=== PATIENT | male | born 1965 | race African-American/Black ===

== ENCOUNTER 2016-12-13 14:48 | Emergency (ER) | payer BC ==
[~2016-12-13] VITALS: Ht 172.7 cm; Wt 98.4 kg
[~2016-12-13 14:48] MED LIST: CINA30TA PO; HYDR-4075 PO; INSU100V7 SQ; METO25TA50 PO; PANT40TA2 PO; SEVE800T8 PO; SIMV5TAB6 PO
--- NOTE | 2016-12-13 15:05 | NUR ---
DR MAIER AT THE BEDSIDE FOR EVAL AND EXAM.
[2016-12-13] MEDS ORDERED: PRED10TA PO (15:12)
[2016-12-13] MEDS ORDERED: DILT180T11 PO (15:12)
[2016-12-13] MEDS ORDERED: TACR1CAP7 PO (15:12)
[2016-12-13] MEDS ORDERED: SIMV10TA6 PO (15:12)
[2016-12-13] MEDS ORDERED: MYCO180T3 PO (15:12)
[2016-12-13] MEDS ORDERED: TACR1CAP PO ×2 (15:16)
[2016-12-13] MEDS: IV NORMAL SALINE 500 ML BAG IV ONE (15:24)
[2016-12-13 15:36] LABS: BASOPHILS % (AUTO) 0.3 % (0.0-2.0); EOSINOPHILS # (AUTO) 0.1 K/uL (0.0-0.7); EOSINOPHILS % (AUTO) 0.7 % (0.0-7.0); HEMATOCRIT 46.1 % (40.0-50.0); MEAN CORPUSCULAR HEMOGLOBIN 28.7 uug (27.0-31.0); MEAN CORPUSCULAR HGB CONC 33 g/dL (32.0-37.0); MEAN CORPUSCULAR VOLUME 88.4 fL (82.0-92.0); MONOCYTES # (AUTO) 0.6 K/uL (0.1-1.30); MONOCYTES % (AUTO) 6.7 % (0.0-11.0); NEUTROPHILS # (AUTO) 6.9 K/uL (1.8-8.9); NEUTROPHILS % (AUTO) 80.3 % (38.5-71.5); PLATELET COUNT (AUTO) 187 K/uL (150-450); RED BLOOD CELL COUNT(AUTO) 5.22 MIL/uL (4.70-6.10); RED CELL DISTRIBUTION WIDTH 13.8 % (11.5-14.5); WHITE BLOOD COUNT (AUTO) 8.6 K/uL (4.0-11.2)
[2016-12-13] MEDS ORDERED: CEFTRIAXONE 1 G VIAL ONE (15:39)
[2016-12-13] MEDS: CEFTRIAXONE 1 G in IV DEXTROSE 5% 50 ML IV ONE (16:00)
[2016-12-13 16:05] LABS: LACTIC ACID 0.9 mmol/L (0.4-2.0)
[2016-12-13 16:13] LABS: CALCIUM 9.4 mg/dL (8.5-10.1); POTASSIUM 4.3 mmol/L (3.5-5.1)
[2016-12-13 16:14] LABS: CREATININE 2.1 mg/dL (0.6-1.3)
[2016-12-13 16:20] LABS: BILIRUBIN,DIRECT 0.1 mg/dL (0.0-0.2); BILIRUBIN,TOTAL 0.4 mg/dL (0.2-1.0); TOTAL PROTEIN, SERUM 7.5 g/dL (6.4-8.2)
[2016-12-13 16:21] LABS: TROPONIN I 0.017 ng/mL (0.00-0.056)
[2016-12-13] MEDS: ACYCLOVIR IV 500 MG in IV DEXTROSE 5% 100 ML IV ONE (16:26)
--- NOTE | 2016-12-13 16:35 | NUR ---
called [facility] , paged dr orozco who is covering for dr serrano, about pt.
--- NOTE | 2016-12-13 16:56 | NUR ---
PT'S FACE SHEET FAXED TO [facility], PER REQUEST.
[2016-12-13] MEDS: VANCOMYCIN IV 1,000 MG in IV DEXTROSE 5% 250 ML IV ONE (17:14)
--- NOTE | 2016-12-13 17:14 | NUR ---
pt resting in bed w/ eyes closed, pt request not to have bp cuff on,"it wakes me up". continue on pulse ox and heart monitor.
[2016-12-13 17:43] LABS: *BILIRUBIN,URIN NEGATIVE (NEGATIVE); *BLOOD, URINE 1+ (NEGATIVE); *CLARITY,URINE CLEAR (CLEAR); *COLOR,URINE YELLOW (YELLOW); *KETONES,URINE NEGATIVE (NEGATIVE); *PROTEIN,URINE NEGATIVE (NEGATIVE); *UROBILINOGEN,URINE 0.2 E.U./dl (NORMAL); LEUKOCYTE ESTERASE ,URINE NEGATIVE (NEGATIVE); NITRITE, URINE NEGATIVE (NEGATIVE); PH,URINE 6.5 (5.0-8.0); UGLUCOSE NEGATIVE (NEGATIVE)
--- NOTE | 2016-12-13 17:45 | NUR ---
pt signed paper for transfer, Dr Mcneill accepted pt to be transfered to [facility], pending bed availibity. Report given to Sindi (rep of tx center at [facility]). pt's aware of transfer.
[2016-12-13 17:51] LABS: WBC,URINE 0-3 /HPF (0-3)
--- NOTE | 2016-12-13 18:45 | NUR ---
[facility] HAD BED AVAIL FOR PT. EMR CALLED, ETA 1 TO HOUR AND HALF.
--- NOTE | 2016-12-13 20:35 | NUR ---
Patient Tranfers to outside Facility Physician: Dr. Mcneill Location: [facility] Room 6318
== END 2016-12-13 20:38 | disposition short-term general hospital (02) ==
LOC: ER 14:55
DX: R51 Headache (principal); I10 Essential (primary) hypertension; E11.9 Type 2 diabetes mellitus without complications; K21.9 Gastro-esophageal reflux disease without esophagitis; Z94.0 Kidney transplant status; Z79.4 Long term (current) use of insulin
CPT/HCPCS: 36415; 70450; 71010; 80048; 80076; 81001; 83605; 84484; 85025; 85730; 86850; 86900; 86901; 87040 ×2; 87086; 93005; 96361; 96365; 96366; 96368; 96375; 99285; A4663; J0696; J3490; J7040; 70030-TC

== ENCOUNTER 2017-12-29 06:30 | Emergency (ER) | payer BC ==
[~2017-12-29] VITALS: Ht 172.7 cm; Wt 95.3 kg
[~2017-12-29 06:30] MED LIST changes: -CINA30TA PO; +DILT180T11 PO; -HYDR-4075 PO; +MYCO180T3 PO; +PRED10TA PO; -SEVE800T8 PO; +SIMV10TA6 PO; -SIMV5TAB6 PO; +TACR1CAP PO
--- NOTE | 2017-12-29 07:02 | NUR ---
Dr Solis into eval patient
[2017-12-29 08:05] LABS: CARBON DIOXIDE 25 mmol/L (21-32); CHLORIDE 101 mmol/L (98-107); CREATININE 1.9 mg/dL (0.6-1.3); GLUCOSE 126 mg/dL (74-106); POTASSIUM 3.6 mmol/L (3.5-5.1); UREA NITROGEN, BLOOD 20 mg/dL (7-18)
--- NOTE | 2017-12-29 08:10 | NUR ---
Patient is resting comfortably on gurney with eyes closed, pending results and disposition.
[2017-12-29 08:20] LABS: ALANINE AMINOTRANSFERASE 25 U/L (16-63); ALKALINE PHOSPHATASE 43 U/L (50-136); ASPARTATE AMINOTRANSFERASE 23 U/L (15-37); BILIRUBIN,TOTAL 0.3 mg/dL (0.2-1.0); TOTAL PROTEIN, SERUM 7.4 g/dL (6.4-8.2)
[2017-12-29 08:32] LABS: BILIRUBIN,DIRECT < 0.1 mg/dL (0.0-0.2)
--- NOTE | 2017-12-29 08:40 | NUR ---
0829- The lab assistant professor of surgery came back to redraw some blood specimen (e.g. CBC, lactic acid) but patient refused any blood redraw, notified.
--- NOTE | 2017-12-29 08:53 | NUR ---
Patient discharged to home in stable conditon. Written and verbal after care instructions given to patient with prescription for NORCO. Patient verbalizes understanding of instructions. Patient left ER with steady gait.
== END 2017-12-29 08:55 | disposition home or self-care (01) ==
LOC: ER 06:33
DX: R07.89 Other chest pain (principal); J40 Bronchitis, not specified as acute or chronic; I10 Essential (primary) hypertension; E11.9 Type 2 diabetes mellitus without complications; E78.5 Hyperlipidemia, unspecified; K21.9 Gastro-esophageal reflux disease without esophagitis; Z94.0 Kidney transplant status; Z91.048 Other nonmedicinal substance allergy status; Z79.4 Long term (current) use of insulin; Z79.899 Other long term (current) drug therapy
CPT/HCPCS: 36415; 70030-TC; 71045; 83605; 85025; 85730; 87040; 93005; A4663

== ENCOUNTER 2018-10-10 05:53 | Emergency (ER) | payer BC ==
[~2018-10-10] VITALS: Ht 172.7 cm; Wt 99.8 kg
--- NOTE | 2018-10-10 06:40 | NUR ---
Pt. ambulated into ED w/ request for blood draw, concerned about reaquiring conjunctivitis, pt. was treated w/ abx eye drops for conjunctivitis x1 week ago, reports some blurred vision and watery eyes in R eye, denies GUEVARA/F/C/N/V
[2018-10-10 07:04] LABS: BASOPHILS % (AUTO) 0.7 % (0.0-2.0); EOSINOPHILS # (AUTO) 0.1 K/uL (0.0-0.7); EOSINOPHILS % (AUTO) 1.4 % (0.0-7.0); HEMATOCRIT 44.1 % (36.7-47.1); HEMOGLOBIN 15.1 g/dL (12.5-16.3); LYMPHOCYTES % (AUTO) 15.5 % (20.5-51.5); MEAN CORPUSCULAR HEMOGLOBIN 31.2 uug (23.8-33.4); MEAN CORPUSCULAR HGB CONC 34 g/dL (32.5-36.3); MEAN CORPUSCULAR VOLUME 91.1 fL (73.0-96.2); MONOCYTES # (AUTO) 0.5 K/uL (2.0-10.0); MONOCYTES % (AUTO) 7.9 % (0.0-11.0); NEUTROPHILS # (AUTO) 4.9 K/uL (1.8-8.9); NEUTROPHILS % (AUTO) 74.5 % (38.5-71.5); PLATELET COUNT (AUTO) 209 K/uL (152-348); RED BLOOD CELL COUNT(AUTO) 4.84 MIL/uL (4.06-5.63); WHITE BLOOD COUNT (AUTO) 6.6 K/uL (3.6-10.2)
--- NOTE | 2018-10-10 07:04 | NUR ---
Gave report to betty EMANUEL
[2018-10-10 07:09] LABS: CREATININE 1.7 mg/dL (0.6-1.3); POTASSIUM 3.5 mmol/L (3.5-5.1)
--- NOTE | 2018-10-10 08:06 | NUR ---
Patient discharged to home in stable conditon. Written and verbal after care instructions given. Patient verbalizes understanding of instructions.
== END 2018-10-10 08:06 | disposition home or self-care (01) ==
LOC: ER 05:54
DX: H10.9 Unspecified conjunctivitis (principal); I10 Essential (primary) hypertension; K21.9 Gastro-esophageal reflux disease without esophagitis; E11.9 Type 2 diabetes mellitus without complications; F17.200 Nicotine dependence, unspecified, uncomplicated; Z79.4 Long term (current) use of insulin; Z79.899 Other long term (current) drug therapy; Z91.048 Other nonmedicinal substance allergy status
CPT/HCPCS: 36415; 85025; 87070; A4663

== ENCOUNTER 2021-09-26 07:38 | Inpatient (IN) | payer BC ==
[~2021-09-26] VITALS: Ht 172.7 cm; Wt 90.7 kg
[~2021-09-26 07:38] MED LIST changes: -SIMV10TA6 PO; +SIMV10TA98 PO; -TACR1CAP PO; +TACR1CAP2 PO
[2021-09-26 08:40] LABS: HEMATOCRIT 41.9 % (36.7-47.1); MEAN CORPUSCULAR HEMOGLOBIN 30.3 uug (23.8-33.4); MEAN CORPUSCULAR VOLUME 89.4 fL (73.0-96.2); PLATELET COUNT (AUTO) 200 K/uL (152-348)
[2021-09-26] MEDS ORDERED: FLUO20CA36 PO (08:47)
[2021-09-26] MEDS ORDERED: AMLO10TA59 PO (08:47)
[2021-09-26] MEDS ORDERED: CLOP75TA15 PO (08:47)
[2021-09-26] MEDS ORDERED: ROSU20TA2 PO (08:47)
[2021-09-26] MEDS ORDERED: LEVE500T20 PO (08:47)
[2021-09-26] MEDS ORDERED: INSU300I SQ (08:47)
[2021-09-26] MEDS ORDERED: ASPI81TA31 PO (08:47)
[2021-09-26] MEDS ORDERED: [UNRECOGNIZED DRUG - REMARK] SQ (08:47)
--- NOTE | 2021-09-26 08:47 | NUR ---
MEDICATIONS RECONCILED W/ PT'S BY PHONE [phone].
[2021-09-26 08:53] LABS: POTASSIUM 3.6 mmol/L (3.5-5.1)
--- NOTE | 2021-09-26 08:59 | NUR ---
Pt resting with NAD noted at this time. Pt to be admitted to tele per . EPIC paged, called tele floor for bed assignment.
[2021-09-26 09:00] LABS: BILIRUBIN,DIRECT 0.2 mg/dL (0.0-0.2); BILIRUBIN,TOTAL 0.6 mg/dL (0.2-1.0); TOTAL PROTEIN, SERUM 7.3 g/dL (6.4-8.2)
[2021-09-26] MEDS ORDERED: DEXAMETHASONE SOD PHOSPHATE 4 MG INJ IV ONE (09:00)
[2021-09-26] MEDS ORDERED: DEXAMETHASONE SOD PHOSPHATE 10 MG INJ ONE (09:03)
--- NOTE | 2021-09-26 09:05 | NUR ---
Plan of care discussed with pt, pt verbalized understanding. NAD noted at this time.
--- NOTE | 2021-09-26 09:35 | NUR ---
spoke with via telephone and pt has been accepted for tele admission. Called again for tele bed assignment, tele floor to call back.
--- NOTE | 2021-09-26 11:00 | NUR ---
Spoke with nursing pressure control supervisor who stated no tele beds available at this time. Pt resting in rbroad top with NAD noted.
--- NOTE | 2021-09-26 12:25 | NUR ---
Pt resting with NAD noted, pending tele admission when bed available.
--- NOTE | 2021-09-26 13:30 | NUR ---
Pt sitting in gurney and eating lunch, NAD noted.
--- NOTE | 2021-09-26 14:10 | NUR ---
SBAR report given to JENAE Daniels on tele floor.
--- NOTE | 2021-09-26 15:00 | NUR ---
Pt trans to tele room 318.
[2021-09-26] MEDS ORDERED: AZITHROMYCIN 250 MG TABLET PO ONE (16:30)
[2021-09-26 16:38] VITALS: BP 127/60
[2021-09-26] MEDS ORDERED: MYCOPHENOLATE SODIUM 180 MG PO SCH (17:00)
[2021-09-26] MEDS ORDERED: TEMAZEPAM 15 MG CAPSULE PO PRN (17:15)
[2021-09-26] MEDS ORDERED: ONDANSETRON 4 MG/2 ML VIAL IV PRN (17:15)
[2021-09-26] MEDS ORDERED: MORPHINE SULFATE 2 MG/1 ML DISP.SYRIN IV PRN (17:15)
[2021-09-26] MEDS ORDERED: INSULIN REGULAR, HUMAN 300 UNIT/3 ML VIAL SQ PRN (17:15)
[2021-09-26] MEDS ORDERED: DEXTROSE 50% 50 ML DISP.SYRIN IV PRN (17:15)
[2021-09-26] MEDS ORDERED: ACETAMINOPHEN 325 MG TABLET PO PRN (17:15)
[2021-09-26] MEDS ORDERED: ALBUTEROL SULFATE 2.5 MG/3 ML NEBU NEB PRN (17:15)
[2021-09-26] MEDS ORDERED: TACROLIMUS ANHYDROUS 1 MG CAPSULE PO SCH (18:00)
[2021-09-26] MEDS: levETIRAcetam 500 MG TABLET PO SCH (18:14)
[2021-09-26] MEDS: FLUOXETINE HCL 20 MG CAPSULE PO SCH (18:14)
[2021-09-26] MEDS: CEFTRIAXONE 1 G in IV DEXTROSE 5% 50 ML IV SCH (18:15)
[2021-09-26 20:33] VITALS: BP 131/67
[2021-09-26] MEDS: SIMVASTATIN 10 MG TABLET PO SCH (20:53)
[2021-09-26] MEDS: LOPERAMIDE HCL 2 MG CAPSULE PO PRN (20:53)
[2021-09-26] MEDS: TACROLIMUS ANHYDROUS 0.5 MG CAPSULE PO SCH (20:53)
[2021-09-26] MEDS: BLOOD SUGAR DIAGNOSTIC 1 EACH STRIP VI SCH (21:03)
[2021-09-27 00:21] VITALS: BP 140/74
[2021-09-27 04:50] VITALS: BP 131/58
[2021-09-27] MEDS: PANTOPRAZOLE SODIUM 40 MG TABLET.DR PO SCH (06:12)
[2021-09-27] MEDS: levETIRAcetam 500 MG TABLET PO SCH ×2 (06:12→16:42)
[2021-09-27] MEDS: BLOOD SUGAR DIAGNOSTIC 1 EACH STRIP VI SCH ×4 (06:44→21:46)
--- NOTE | 2021-09-27 06:46 | NUR ---
Slept throughout the night. Midline nurse came and inserted midline, line patent. Pt denies pain or SOB. Pt clothes were soiled but he denies to be changed into a clean gown. Tolerated all medications given. Safety and comfort provided. Will endorse to day shift.
--- NOTE | 2021-09-27 06:57 | NUR ---
Oxygen titrated to 1L, tolerating well
--- NOTE | 2021-09-27 07:36 | NUR ---
Received patient report from shift supervisor nurse, Jessica EMANUEL. Received patient resting comfortably in bed with no signs of distress or discomfort. IV site intact and patent. Bed left in lowest position with call light within reach.
[2021-09-27 07:52] LABS: MEAN CORPUSCULAR HEMOGLOBIN 30.5 uug (23.8-33.4); MEAN CORPUSCULAR VOLUME 89.2 fL (73.0-96.2); PLATELET COUNT (AUTO) 244 K/uL (152-348)
[2021-09-27] MEDS: CLOPIDOGREL 75 MG TABLET PO SCH (08:31)
[2021-09-27] MEDS: ASPIRIN 81 MG TAB.CHEW PO SCH (08:31)
[2021-09-27] MEDS: FLUOXETINE HCL 20 MG CAPSULE PO SCH ×2 (08:32→16:42)
[2021-09-27] MEDS: ASCORBIC ACID 500 MG TABLET PO SCH (08:32)
[2021-09-27] MEDS: CHOLECALCIFEROL 1,000 UNIT TABLET PO SCH (08:32)
[2021-09-27] MEDS: TACROLIMUS ANHYDROUS 0.5 MG CAPSULE PO SCH ×2 (08:32→21:44)
[2021-09-27 08:48] LABS: BILIRUBIN,TOTAL 0.4 mg/dL (0.2-1.0); CREATININE 1.5 mg/dL (0.6-1.3); MAGNESIUM 2.1 mg/dL (1.8-2.4); PHOSPHOROUS 2.9 mg/dL (2.5-4.9); POTASSIUM 4.5 mmol/L (3.5-5.1); TOTAL PROTEIN, SERUM 7.3 g/dL (6.4-8.2)
[2021-09-27] MEDS ORDERED: PANTOPRAZOLE SODIUM 40 MG TABLET.DR PO SCH (09:00)
[2021-09-27] MEDS ORDERED: INSULIN GLARGINE,HUM 300 UNITS/3 ML CARTRIDGE SQ SCH (09:00)
[2021-09-27] MEDS ORDERED: Medication Not On Formulary EA (Rosuvastatin Calcium (Crestor) 1 TAB) PO SCH (09:00)
[2021-09-27] MEDS ORDERED: predniSONE 5 MG TABLET PO SCH (09:00)
[2021-09-27] MEDS: DEXAMETHASONE SOD PHOSPHATE 4 MG INJ IV SCH (10:23)
--- NOTE | 2021-09-27 10:36 | NUR ---
Patient refused regular insulin and lantus insulin. Patients recent blood sugar level is 249. Patient's cement mixer driver dropping off patients own insulin and then will reconcile medications. Dr. Saini notified. Charge nurse notified.
[2021-09-27] MEDS ORDERED: INSU100I33 SQ (11:59)
[2021-09-27 12:00] VITALS: BP 131/70
--- NOTE | 2021-09-27 12:00 | NUR ---
Patient's electric screw driver operator dropped off insulin for patients. Insulin brought to pharmacy for reconciliation. Blood sugar drawn and insulin sliding scale used.
[2021-09-27] MEDS: INSULIN ASPART SQ PRN ×2 (12:29→17:07)
[2021-09-27] MEDS: [UNRECOGNIZED DRUG - OTHER] SQ PRN ×2 (12:29→17:07)
[2021-09-27] MEDS: ENOXAPARIN SODIUM 30 MG/0.3 ML DISP.SYRIN SUBCUT SCH (13:25)
[2021-09-27] MEDS: INSULIN GLARGINE SQ SCH (13:27)
[2021-09-27] MEDS: [UNRECOGNIZED DRUG - OTHER] SQ SCH (13:27)
[2021-09-27] MEDS ORDERED: REMDESIVIR (CHARGED) 200 MG in IV NORMAL SALINE 210 ML IV ONE ×2 (15:00→18:00)
[2021-09-27] MEDS ORDERED: [UNRECOGNIZED DRUG - OTHER] PO SCH (16:00)
[2021-09-27] MEDS ORDERED: MYCOPHENOLATE 180 MG PO SCH (16:00)
[2021-09-27] MEDS: AZITHROMYCIN 250 MG TABLET PO SCH (16:41)
[2021-09-27] MEDS: CEFTRIAXONE 1 G in IV DEXTROSE 5% 50 ML IV SCH (16:54)
[2021-09-27 16:55] VITALS: BP 136/70
[2021-09-27 17:55] LABS: THYROID STIMULATING HORMONE 0.204 mIU/mL (0.358-3.740)
[2021-09-27] MEDS ORDERED: REMDESIVIR (CHARGED) 100 MG in IV NORMAL SALINE 100 ML IV SCH (18:00)
--- NOTE | 2021-09-27 19:30 | NUR ---
Received patient in bed awake alert and oriented times 4. Patient us stable at this times no sign of distress noted. Patient speech is mumbled. Safety precautions are in place. Will continue to monitor.
[2021-09-27 20:00] VITALS: BP 146/65
--- NOTE | 2021-09-27 21:30 | NUR ---
Patient refused to have me administer insulin, he states that he will use his own insulin. He also took off his security monitor and says he will not put it back on until he has been given a hot meal. Patient is refusing to take his medications until he gets a nasal wash. Will endorse this request to the day shift.
[2021-09-27] MEDS: SIMVASTATIN 10 MG TABLET PO SCH (21:44)
[2021-09-27] MEDS: [UNRECOGNIZED DRUG - OTHER] PO SCH (21:44)
[2021-09-27] MEDS: MYCOPHENOLATE 180 MG PO SCH (21:44)
[2021-09-28] VITALS: BP 124/68
[2021-09-28 04:00] VITALS: BP 135/72
[2021-09-28] MEDS: levETIRAcetam 500 MG TABLET PO SCH ×2 (05:16→17:51)
[2021-09-28] MEDS: PANTOPRAZOLE SODIUM 40 MG TABLET.DR PO SCH (06:40)
[2021-09-28] MEDS: BLOOD SUGAR DIAGNOSTIC 1 EACH STRIP VI SCH ×4 (06:57→20:43)
--- NOTE | 2021-09-28 08:30 | NUR ---
resting in bed, no distress noted, on 1l/nc 02 at 97%, no cough noted, explained plan of care- verbalized understanding, tele SR 60's, call light within reach, needs attended
[2021-09-28] MEDS: DEXAMETHASONE SOD PHOSPHATE 4 MG INJ IV SCH (09:33)
[2021-09-28] MEDS: CLOPIDOGREL 75 MG TABLET PO SCH (09:34)
[2021-09-28] MEDS: ASPIRIN 81 MG TAB.CHEW PO SCH (09:34)
[2021-09-28] MEDS: TACROLIMUS ANHYDROUS 0.5 MG CAPSULE PO SCH ×2 (09:35→20:30)
[2021-09-28] MEDS: INSULIN GLARGINE SQ SCH (09:35)
[2021-09-28] MEDS: [UNRECOGNIZED DRUG - OTHER] SQ SCH (09:35)
[2021-09-28] MEDS: ENOXAPARIN SODIUM 30 MG/0.3 ML DISP.SYRIN SUBCUT SCH (09:36)
[2021-09-28] MEDS: CHOLECALCIFEROL 1,000 UNIT TABLET PO SCH (09:36)
[2021-09-28] MEDS: ASCORBIC ACID 500 MG TABLET PO SCH (09:37)
[2021-09-28] MEDS: FLUOXETINE HCL 20 MG CAPSULE PO SCH ×2 (09:37→17:51)
[2021-09-28] MEDS: MYCOPHENOLATE 180 MG PO SCH ×2 (09:53→17:52)
[2021-09-28] MEDS: [UNRECOGNIZED DRUG - OTHER] PO SCH ×2 (09:53→17:52)
[2021-09-28 11:45] LABS: HEMATOCRIT 43.2 % (36.7-47.1); MEAN CORPUSCULAR HEMOGLOBIN 30.5 uug (23.8-33.4); MEAN CORPUSCULAR VOLUME 89.8 fL (73.0-96.2); PLATELET COUNT (AUTO) 280 K/uL (152-348)
[2021-09-28 12:00] VITALS: BP 139/77
[2021-09-28] MEDS: [UNRECOGNIZED DRUG - OTHER] SQ PRN (12:07)
[2021-09-28] MEDS: INSULIN ASPART SQ PRN (12:07)
[2021-09-28 12:18] LABS: ALANINE AMINOTRANSFERASE 22 U/L (16-63); ALKALINE PHOSPHATASE 22 U/L (50-136); ASPARTATE AMINOTRANSFERASE 46 U/L (15-37); BILIRUBIN,TOTAL 0.4 mg/dL (0.2-1.0); CARBON DIOXIDE 21 mmol/L (21-32); CHLORIDE 100 mmol/L (98-107); CREATININE 1.4 mg/dL (0.6-1.3); GLUCOSE 235 mg/dL (74-106); POTASSIUM 5.3 mmol/L (3.5-5.1); TOTAL PROTEIN, SERUM 7.1 g/dL (6.4-8.2); UREA NITROGEN, BLOOD 26 mg/dL (7-18)
[2021-09-28 12:19] LABS: BILIRUBIN,DIRECT < 0.1 mg/dL (0.0-0.2)
[2021-09-28] MEDS ORDERED: REMDESIVIR (CHARGED) 100 MG in IV NORMAL SALINE 100 ML IV SCH (15:00)
[2021-09-28] MEDS: AZITHROMYCIN 250 MG TABLET PO SCH ×2 (17:14→17:51)
[2021-09-28] MEDS: CEFTRIAXONE 1 G in IV DEXTROSE 5% 50 ML IV SCH (17:15)
--- NOTE | 2021-09-28 18:00 | NUR ---
no distress noted, remains on 1l/nc, all needs attended and met, safety measures maintained, remains on respiratory isolation, call light within reach
[2021-09-28] MEDS: REMDESIVIR (CHARGED) 100 MG in IV NORMAL SALINE 100 ML IV SCH (18:29)
[2021-09-28] MEDS ORDERED: GUAIFENESIN SUGAR FREE 100 MG/5 ML UDC PO PRN (18:45)
--- NOTE | 2021-09-28 19:35 | NUR ---
Received pt resting in bed. AO x 4. On 1L NC saturating at 95%. STANISLAV midline intact and patent. No signs of acute distress. No complaints from pt at this time. Urinal and belongings placed by bedside. Call lights within reach. Safety measures initiated. Will continue to monitor.
[2021-09-28] MEDS: SIMVASTATIN 10 MG TABLET PO SCH (20:30)
[2021-09-28] MEDS: GUAIFENESIN LA 600 MG TABLET.SA PO SCH (20:30)
[2021-09-28 20:50] VITALS: BP 126/63
[2021-09-29 04:30] VITALS: BP 109/64
[2021-09-29] MEDS: levETIRAcetam 500 MG TABLET PO SCH ×2 (05:47→17:28)
[2021-09-29] MEDS: PANTOPRAZOLE SODIUM 40 MG TABLET.DR PO SCH (06:34)
[2021-09-29] MEDS: BLOOD SUGAR DIAGNOSTIC 1 EACH STRIP VI SCH ×4 (06:44→21:17)
--- NOTE | 2021-09-29 06:51 | NUR ---
Slept throughout the night. AO x 4. On 1L NC saturating at 98%. STANISLAV midline intact. Left arm AV Fistula. Urine clear, yellow, no foul odor. No signs of acute distress. Educated patient on diet. Able to state all needs and met. Call lights within reach, safety measures maintained. Will endorse to am shift.
[2021-09-29 07:54] LABS: HEMATOCRIT 40.3 % (36.7-47.1); MEAN CORPUSCULAR HEMOGLOBIN 29.7 uug (23.8-33.4); MEAN CORPUSCULAR VOLUME 89.6 fL (73.0-96.2); PLATELET COUNT (AUTO) 305 K/uL (152-348)
[2021-09-29] MEDS: DEXAMETHASONE SOD PHOSPHATE 4 MG INJ IV SCH (08:38)
[2021-09-29] MEDS: ASPIRIN 81 MG TAB.CHEW PO SCH (08:39)
[2021-09-29] MEDS: MYCOPHENOLATE 180 MG PO SCH ×2 (08:40→17:29)
[2021-09-29] MEDS: GUAIFENESIN LA 600 MG TABLET.SA PO SCH ×2 (08:40→21:16)
[2021-09-29] MEDS: [UNRECOGNIZED DRUG - OTHER] PO SCH ×2 (08:40→17:29)
[2021-09-29] MEDS: CLOPIDOGREL 75 MG TABLET PO SCH (08:40)
[2021-09-29] MEDS: TACROLIMUS ANHYDROUS 0.5 MG CAPSULE PO SCH ×2 (08:41→21:16)
[2021-09-29] MEDS: FLUOXETINE HCL 20 MG CAPSULE PO SCH ×2 (08:41→17:28)
[2021-09-29] MEDS: ASCORBIC ACID 500 MG TABLET PO SCH (08:42)
[2021-09-29] MEDS: CHOLECALCIFEROL 1,000 UNIT TABLET PO SCH (08:42)
[2021-09-29] MEDS: ENOXAPARIN SODIUM 30 MG/0.3 ML DISP.SYRIN SUBCUT SCH (08:45)
[2021-09-29] MEDS: INSULIN GLARGINE SQ SCH (08:48)
[2021-09-29] MEDS: [UNRECOGNIZED DRUG - OTHER] SQ SCH (08:48)
[2021-09-29] MEDS: INSULIN ASPART SQ PRN ×2 (08:51→12:26)
[2021-09-29] MEDS: [UNRECOGNIZED DRUG - OTHER] SQ PRN ×2 (08:51→12:26)
[2021-09-29 08:55] LABS: MAGNESIUM 2.1 mg/dL (1.8-2.4); PHOSPHOROUS 2.9 mg/dL (2.5-4.9)
[2021-09-29 09:02] LABS: POTASSIUM 4.1 mmol/L (3.5-5.1)
[2021-09-29 09:03] LABS: BILIRUBIN,TOTAL 0.3 mg/dL (0.2-1.0)
[2021-09-29 09:04] LABS: TOTAL PROTEIN, SERUM 6.8 g/dL (6.4-8.2)
[2021-09-29 11:30] LABS: BILIRUBIN,DIRECT 0.1 mg/dL (0.0-0.2); CREATININE 1.4 mg/dL (0.6-1.3)
[2021-09-29] MEDS: GLUCERNA SHAKE VANILLA 237 ML CAN PO SCH ×2 (14:00→18:14)
[2021-09-29] MEDS: CEFTRIAXONE 1 G in IV DEXTROSE 5% 50 ML IV SCH (17:28)
[2021-09-29] MEDS: REMDESIVIR (CHARGED) 100 MG in IV NORMAL SALINE 100 ML IV SCH (18:13)
[2021-09-29 20:52] VITALS: BP 131/60
[2021-09-29] MEDS: SIMVASTATIN 10 MG TABLET PO SCH (21:16)
[2021-09-30] MEDS: LOPERAMIDE HCL 2 MG CAPSULE PO PRN (01:28)
[2021-09-30 04:30] VITALS: BP 139/64
[2021-09-30] MEDS: levETIRAcetam 500 MG TABLET PO SCH (05:19)
[2021-09-30] MEDS: PANTOPRAZOLE SODIUM 40 MG TABLET.DR PO SCH (06:07)
[2021-09-30] MEDS: BLOOD SUGAR DIAGNOSTIC 1 EACH STRIP VI SCH ×2 (06:20→11:57)
--- NOTE | 2021-09-30 06:38 | NUR ---
Patient slept intermittently during the night. AO x 4. On room air saturating at 93%. Continues to be non-compliant with medication. Educated patient on importance of medication and Covid-19 but continues to deny having Covid-19. No signs of acute distress. Able to walk to bathroom. Isolation and safety precautions maintained. Call lights within reach. Will endorse to am shift. Addendum: 09/30/21 at 0642 by SUSAN KUHN RN Wrong patient.
--- NOTE | 2021-09-30 06:54 | NUR ---
Patient resting in bed, on 1.5L NC saturating at 98%. AO x 4. STANISLAV midline intact and patent. all needs stated and met. Per pt's request, Imodium was given for upset stomach and liquid bowel movements. no signs of acute distress. Belongings and call lights within reach. Safety measures maintained. Droplet isolation taken. Will endorse to am shift.
[2021-09-30 07:44] LABS: HEMATOCRIT 42.6 % (36.7-47.1); MEAN CORPUSCULAR HEMOGLOBIN 29.8 uug (23.8-33.4); MEAN CORPUSCULAR VOLUME 88.1 fL (73.0-96.2); PLATELET COUNT (AUTO) 309 K/uL (152-348)
[2021-09-30 07:58] LABS: BILIRUBIN,DIRECT 0.1 mg/dL (0.0-0.2); BILIRUBIN,TOTAL 0.3 mg/dL (0.2-1.0); CREATININE 1.3 mg/dL (0.6-1.3); POTASSIUM 3.7 mmol/L (3.5-5.1)
--- NOTE | 2021-09-30 08:00 | NUR ---
Received patient resting quietly in his assigned bed. Bed is in low and locked position with upper bilateral side rails. Respirations are even and unlabored, no respiratory distress noted. Patient receiving oxygen via NC at 1.5 L, tolerating well. Patient using a urinal at bedside but is able to ambulate independently. STANISLAV midline is patent, flushed with sterile NS. Dressing is dry and intact.
[2021-09-30 08:20] VITALS: BP 132/67
[2021-09-30] MEDS: DEXAMETHASONE SOD PHOSPHATE 4 MG INJ IV SCH (08:37)
[2021-09-30] MEDS: [UNRECOGNIZED DRUG - OTHER] PO SCH (08:37)
[2021-09-30] MEDS: MYCOPHENOLATE 180 MG PO SCH (08:37)
[2021-09-30] MEDS: CHOLECALCIFEROL 1,000 UNIT TABLET PO SCH (08:37)
[2021-09-30] MEDS: TACROLIMUS ANHYDROUS 0.5 MG CAPSULE PO SCH (08:37)
[2021-09-30] MEDS: CLOPIDOGREL 75 MG TABLET PO SCH (08:38)
[2021-09-30] MEDS: ASPIRIN 81 MG TAB.CHEW PO SCH (08:38)
[2021-09-30] MEDS: ASCORBIC ACID 500 MG TABLET PO SCH (08:38)
[2021-09-30] MEDS: GUAIFENESIN LA 600 MG TABLET.SA PO SCH (08:38)
[2021-09-30] MEDS: FLUOXETINE HCL 20 MG CAPSULE PO SCH (08:38)
[2021-09-30] MEDS: [UNRECOGNIZED DRUG - OTHER] SQ SCH (08:40)
[2021-09-30] MEDS: INSULIN GLARGINE SQ SCH (08:40)
[2021-09-30] MEDS: ENOXAPARIN SODIUM 30 MG/0.3 ML DISP.SYRIN SUBCUT SCH (08:41)
[2021-09-30] MEDS: GLUCERNA SHAKE VANILLA 237 ML CAN PO SCH (08:43)
--- NOTE | 2021-09-30 09:00 | NUR ---
Patient's BS this AM 189. Patient was to be given 3 Units per sliding scale but patient refused. Patient states that he will not take any insulin lower than 5 units because that is what he takes every day at home. Patient was educated about sliding scale insulin but he became angry and agitated and cursing at this appeals writer. Patient continues to refuse insulin per sliding scale. Patient educated about importance of blood sugar management for diabetes and other chronic conditions with which he is diagnosed but he is refusing to participate in education and continues to curse at this appeals writer. Patient is also refusing to eat breakfast, states "it's cold and disgusting". Patient educated about importance of diet for diabetes management. Patient is alert and oriented, resting in bed.
--- NOTE | 2021-09-30 09:48 | NUR ---
He is angry, agitated, and anxious. Patient states that he wishes to leave AMA because he is not getting the correct doses of his insulin per patient. Patient was educated about the doses of insulin that is being prescribed and educated about the importance of insulin administration for diabetes management but patient becomes angrier and continues to refuse all treatment. Patient stated to this sports book writer that he will be leaving the hospital today AMA and that a family member will be picking him up to take him home. Patient stated that he has been having symptoms of COVID for almost 2 weeks and will follow up with his primary care physician. Dr. Saini notified of patient's wish to leave AMA. Waiting for call back at this time. Addendum: 09/30/21 at 1113 by CARYL LANGSTON RN MD aware of patient wanting to leave AMA. Patient educated about risks and benefits of AMA discharge, educated about COVID-19 and importance of treatment and isolation to prevent spread. Patient is refusing to sign AMA document, states he is not leaving until he speaks with MD about plan of treatment. MD is currently in room speaking with patient.
[2021-09-30] MEDS: REMDESIVIR (CHARGED) 100 MG in IV NORMAL SALINE 100 ML IV SCH (12:01)
[2021-09-30] MEDS ORDERED: AZIT250T13 PO (12:02)
[2021-09-30] MEDS ORDERED: METH4TAB3 PO (12:02)
--- NOTE | 2021-09-30 13:09 | NUR ---
Patient received remdesevir IV without adverse event. Tolerated well. STANISLAV midline is intact and patent. Patient has not been using nasal cannula as prescribed and is receiving oxygen via room air, saturating 98%. Patient denies SOB, chest pain, difficulty breathing, cough. Patient is also refusing insulin coverage per sliding scale for a blood sugar of 148. Patient provided with education about importance of taking insulin as prescribed for management of diabetes and preventing complications. Patient verbalizes understanding but continues to refuse and states he will take the "correct doses" of medications at home.
[2021-09-30 13:12] VITALS: BP 138/68
--- NOTE | 2021-09-30 14:59 | NUR ---
DISCHARGE NOTE: Patient is being discharged home, he is being picked up by his Tere and being transported in a private car. Patient's belongings, valuables, and home medications inventoried with patient and all returned. Patient provided with education about discharge instructions, discharge prescriptions, and importance of follow up care. Patient is able to verbalize understanding. Midline catheter removed without adverse event, no bleeding, redness, pain, or swelling noted at site. Site covered with bandaid. Patient escorted off the unit in a wheelchair by nursing staff.
== END 2021-09-30 14:30 | disposition home or self-care (01) | DRG 871 ==
LOC: ER 07:38 → TELE3 14:56 → MEDSURG3 09-28 11:30
PROVIDERS: ADMIT Internal Medicine; ATTEND Internal Medicine
PROC: 05H933Z Insertion of Infusion Device into Right Brachial Vein, Percutaneous Approach (ICD-10-PCS; principal; 2021-09-26)
PROC: XW033E5 Introduction of Remdesivir Anti-infective into Peripheral Vein, Percutaneous Approach, New Technology Group 5 (ICD-10-PCS; 2021-09-27)
DX: A41.89 Other specified sepsis (principal); U07.1 COVID-19; J12.82 Pneumonia due to coronavirus disease 2019; J96.01 Acute respiratory failure with hypoxia; J15.9 Unspecified bacterial pneumonia; Z94.0 Kidney transplant status; E11.22 Type 2 diabetes mellitus with diabetic chronic kidney disease; D63.1 Anemia in chronic kidney disease; I12.9 Hypertensive chronic kidney disease with stage 1 through stage 4 chronic kidney disease, or unspecified chronic kidney disease; N18.9 Chronic kidney disease, unspecified; I69.398 Other sequelae of cerebral infarction; G40.909 Epilepsy, unspecified, not intractable, without status epilepticus; E78.5 Hyperlipidemia, unspecified; N40.0 Benign prostatic hyperplasia without lower urinary tract symptoms; F17.210 Nicotine dependence, cigarettes, uncomplicated
CPT/HCPCS: 36415; 70030-TC; 71045; 83605; 83735; 84100; 84443; 85025; 85610; 85730; 86140; 87040; 87400; 93005; A4663; G0378; J0696; J1100; J1650; J1815; J3490; J7030; J7040; J7050; J7060; J7507; J7512; Q0144; U0003

== ENCOUNTER 2021-11-14 10:56 | Emergency (ER) | payer SELFPAY ==
[~2021-11-14] VITALS: Ht 172.7 cm; Wt 86.2 kg
[~2021-11-14 10:56] MED LIST changes: +AMLO10TA59 PO; +ASPI81TA31 PO; +AZIT250T13 PO; +CLOP75TA15 PO; -DILT180T11 PO; +FLUO20CA36 PO; +INSU100I33 SQ; -INSU100V7 SQ; +INSU300I SQ; +LEVE500T20 PO; +METH4TAB3 PO
[2021-11-14] MEDS ORDERED: SULFAMETH/TRIMETH 800/160 MG TABLET PO ONE (11:15)
[2021-11-14] MEDS ORDERED: CEphaleXIN 500 MG CAPSULE PO ONE (11:15)
[2021-11-14] MEDS ORDERED: LIDOCAINE 1%-EPI 1:100,000 20 ML VIAL IJ ONE (11:15)
[2021-11-14] MEDS ORDERED: CEphaleXIN 500 MG CAPSULE ONE (11:48)
[2021-11-14] MEDS ORDERED: SULFAMETH/TRIMETH 800/160 MG TABLET ONE (11:48)
[2021-11-14] MEDS ORDERED: CEPH500C2 PO ×2 (12:00→12:12)
[2021-11-14] MEDS ORDERED: SULF1TAB48 PO ×2 (12:00→12:12)
--- NOTE | 2021-11-14 12:18 | NUR ---
Gave pt and RX and d/c instructions, pt verbalized understanding.
== END 2021-11-14 12:23 | disposition home or self-care (01) ==
LOC: ER 10:56
DX: L02.415 Cutaneous abscess of right lower limb (principal); I10 Essential (primary) hypertension; K21.9 Gastro-esophageal reflux disease without esophagitis; E11.9 Type 2 diabetes mellitus without complications; F17.210 Nicotine dependence, cigarettes, uncomplicated; Z91.048 Other nonmedicinal substance allergy status; Z79.4 Long term (current) use of insulin; Z79.2 Long term (current) use of antibiotics; Z79.899 Other long term (current) drug therapy; Z79.82 Long term (current) use of aspirin
CPT/HCPCS: 87070; 87077; A4663

== ENCOUNTER 2021-11-16 10:59 | Emergency (ER) | payer SELFPAY ==
[~2021-11-16] VITALS: Ht 172.7 cm; Wt 86.2 kg
[~2021-11-16 10:59] MED LIST changes: +CEPH500C2 PO; +SULF1TAB48 PO
--- NOTE | 2021-11-16 12:28 | NUR ---
Gave pt d/c instructions, pt verbalized understanding.
== END 2021-11-16 12:36 | disposition home or self-care (01) ==
LOC: ER 10:59
DX: Z48.817 Encounter for surgical aftercare following surgery on the skin and subcutaneous tissue (principal); L02.415 Cutaneous abscess of right lower limb; G40.909 Epilepsy, unspecified, not intractable, without status epilepticus; Z94.0 Kidney transplant status; E11.9 Type 2 diabetes mellitus without complications; Z79.4 Long term (current) use of insulin; I10 Essential (primary) hypertension; F17.200 Nicotine dependence, unspecified, uncomplicated; Z79.82 Long term (current) use of aspirin; Z79.899 Other long term (current) drug therapy; F32.A Depression, unspecified
CPT/HCPCS: A4663

== ENCOUNTER 2022-03-04 13:46 | Inpatient (IN) | payer BC ==
[~2022-03-04] VITALS: Ht 172.7 cm; Wt 90.7 kg
--- NOTE | 2022-03-04 14:21 | NUR ---
Dr. Reina at bedside exam in progress.
[2022-03-04] MEDS ORDERED: ROSU20TA32 PO (14:47)
[2022-03-04 14:49] LABS: MEAN CORPUSCULAR HEMOGLOBIN 29.7 uug (23.8-33.4); MEAN CORPUSCULAR VOLUME 88.6 fL (73.0-96.2); PLATELET COUNT (AUTO) 209 K/uL (152-348)
[2022-03-04 14:54] LABS: CARBON DIOXIDE 27 mmol/L (21-32); CHLORIDE 105 mmol/L (98-107); CREATININE 1.4 mg/dL (0.6-1.3); GLUCOSE 67 mg/dL (74-106); POTASSIUM 3.5 mmol/L (3.5-5.1); UREA NITROGEN, BLOOD 17 mg/dL (7-18)
[2022-03-04] MEDS ORDERED: SWABABLE VALVE TRANSFER SET EA MC ONE (15:10)
[2022-03-04] MEDS ORDERED: IV NORMAL SALINE 250 ML IV ONE (15:10)
[2022-03-04] MEDS ORDERED: IOHEXOL 350 100 ML INFUS..BTL ONE (15:10)
[2022-03-04] MEDS ORDERED: IV NORMAL SALINE 1000 ML BAG IV ONE (15:15)
--- NOTE | 2022-03-04 15:20 | NUR ---
informed as per patient and his PCP recommendations He's cant have any kind of dye due to kidney transplant. procedure cancelled by .
--- NOTE | 2022-03-04 16:41 | NUR ---
Sussy kay in [facility] - 03/04/22 at 1727 by SANAZ A call from transfer center and at this time I was informed that pt. will be going to room 4401and to call transfer center will reach back with ETA to flower picker pt.
[2022-03-04] MEDS ORDERED: MAG HYDROX/AL HYDROX/SIMETH 30 ML LIQUID UDC PO PRN (17:15)
[2022-03-04] MEDS ORDERED: PHARMACY TO ADJUST ALL MEDS FOR RENAL FUNCT XX PRN (17:15)
--- NOTE | 2022-03-04 17:53 | NUR ---
TEXT DR. GALEAS FOR MRI APPROVAL.
[2022-03-04] MEDS: BLOOD SUGAR DIAGNOSTIC 1 EACH STRIP VI SCH (18:49)
--- NOTE | 2022-03-04 19:09 | NUR ---
Bedside report given all systems covered and pending procedures endorse to rn. Dominguez.
--- NOTE | 2022-03-04 20:12 | NUR ---
Report given To Will lorry weigher.
--- NOTE | 2022-03-04 20:35 | NUR ---
Admitted patient in Tele floor under the care of Jessy Bautista, Patient alert oriented, with slurred speech, right arm weakness, right leg weakness. Patient has old stroke per report. Patient able to make needs know, able to swallow meds without difficulty, no coughing, no choking noted, notify patient that he NPO now but refused to follow, ate burger from outside, no coughing no choking noted, tolerate well. took away water pitcher, bed arm is on, no skin issue noted, cont to monitor.
[2022-03-04] MEDS ORDERED: BLOOD SUGAR DIAGNOSTIC 1 EACH STRIP VI SCH (21:00)
[2022-03-04 21:06] VITALS: BP 136/68
[2022-03-04] MEDS: TACROLIMUS ANHYDROUS 0.5 MG CAPSULE PO SCH (21:14)
[2022-03-04] MEDS: SIMVASTATIN 40 MG TABLET PO SCH (21:14)
[2022-03-04] MEDS ORDERED: MYCOPHENOLATE 180 MG PO ONE (22:00)
[2022-03-04] MEDS ORDERED: [UNRECOGNIZED DRUG - OTHER] PO ONE (22:00)
[2022-03-04] MEDS: levETIRAcetam 500 MG TABLET PO SCH (22:03)
[2022-03-05 00:42] VITALS: BP 132/75
[2022-03-05] MEDS: INSULIN REGULAR, HUMAN 300 UNIT/3 ML VIAL SQ PRN ×4 (00:48→22:06)
[2022-03-05] MEDS: BLOOD SUGAR DIAGNOSTIC 1 EACH STRIP VI SCH ×6 (00:48→21:49)
[2022-03-05] MEDS ORDERED: DEXTROSE 50% 50 ML DISP.SYRIN IV PRN ×2 (01:15→12:15)
--- NOTE | 2022-03-05 03:39 | NUR ---
Patient blood sugar was 228 at 0048, given regular insulin coverage, but patient wanted more insulin up to 10 units, explained to patient that we have to follow MD order not what he wishes to have, explained also that he NPO at this time,he at risk for hypogycemia, Patient refused to accept or follow MD order gets agitated trowing things on the hallways, throw tele box, hospital phone, Place a call to and left message if she can call the hospital, because patient wanted to go AMA. devulcanizer charger was aware.
--- NOTE | 2022-03-05 03:48 | NUR ---
Patient refused tele box throw things on the hallways.
[2022-03-05 04:23] VITALS: BP 140/69
[2022-03-05] MEDS ORDERED: BLOOD SUGAR DIAGNOSTIC 1 EACH STRIP VI SCH (06:00)
[2022-03-05 06:46] LABS: HEMATOCRIT 42.8 % (36.7-47.1); MEAN CORPUSCULAR HEMOGLOBIN 29.8 uug (23.8-33.4); PLATELET COUNT (AUTO) 193 K/uL (152-348)
[2022-03-05 07:00] LABS: CREATININE 1.4 mg/dL (0.6-1.3); POTASSIUM 3.8 mmol/L (3.5-5.1)
[2022-03-05 07:05] LABS: BILIRUBIN,TOTAL 0.2 mg/dL (0.2-1.0); MAGNESIUM 1.8 mg/dL (1.8-2.4); PHOSPHOROUS 2.5 mg/dL (2.5-4.9); TOTAL PROTEIN, SERUM 6.6 g/dL (6.4-8.2)
[2022-03-05 07:16] LABS: THYROID STIMULATING HORMONE 1.1 mIU/mL (0.358-3.740)
[2022-03-05] MEDS: predniSONE 5 MG TABLET PO SCH ×2 (09:00→12:03)
[2022-03-05] MEDS ORDERED: PANTOPRAZOLE SODIUM 40 MG TABLET.DR PO SCH (09:00)
[2022-03-05] MEDS: PANTOPRAZOLE SODIUM 40 MG VIAL IV SCH (09:25)
[2022-03-05] MEDS: CLOPIDOGREL 75 MG TABLET PO SCH (09:25)
[2022-03-05] MEDS: levETIRAcetam 500 MG TABLET PO SCH ×2 (09:25→21:49)
[2022-03-05] MEDS: ASPIRIN EC 81 MG TABLET.DR PO SCH (09:26)
[2022-03-05] MEDS: AMLODIPINE 10 MG TABLET PO SCH (09:26)
[2022-03-05] MEDS: TACROLIMUS ANHYDROUS 0.5 MG CAPSULE PO SCH ×2 (09:26→21:48)
--- NOTE | 2022-03-05 09:50 | NUR ---
PATIENT SEEN AND EXAMINED BY DR CAPONE NOTIFIED HIM THAT PATIENT IS NPO STATUS STATED TO GIVE MEDICATIONS ORDERED AND NOTED.
--- NOTE | 2022-03-05 10:12 | NUR ---
PATIENT IS ALERT AND ORIENTED AND STATED FOR ME TO CALL HIS FOR THE MRI CHECK LIST SO I CALLED [facility] SPOKE WITH HER AND SHE ASSISTED WITH MRI CHECK LIST SHE ALSO WANTED DR CAPONE TO CALL HER BUT DR SHELTON STATED TO GIVE HER THE EPIC NUMBER TO CALL HIM SO EPIC NUMBER GIVEN TO OW[facility].
[2022-03-05 11:45] VITALS: BP 150/79
--- NOTE | 2022-03-05 12:20 | NUR ---
PATIENT PICKED UP BY AMBULANCE TO [facility] FOR MRA HEAD AND NECK ORDERED IN SATISFACTORY CONDITION.
--- NOTE | 2022-03-05 13:20 | NUR ---
CALL RECEIVED FROM [facility] STATED THAT PATIENT REFUSED HIS MRA STATED THAT HE HAS SHOULDER PAIN THEN CHANGED IT TO HE CANNOT BREATH O2 WAS GIVEN WITH ADEQUATE SATURATION BUT HE STILL REFUSED.
--- NOTE | 2022-03-05 13:41 | NUR ---
PATIENT RETURNED FROM MRI AT THIS TIME TEST NOT DONE BACK TO BED.WILL NOTIFY DR CAPONE.
--- NOTE | 2022-03-05 14:15 | NUR ---
CALLED AND NOTIFIED DR CAPONE THAT PATIENT CAME BACK AND REFUSED THE MRI ORDERED STATED THAT HE HAD PAIN IN HIS SHOULDERS AND DR CAPONE STATED OKAY WITH NO NEW ORDERS AT THIS TIME.
[2022-03-05 16:00] VITALS: BP 153/76
[2022-03-05] MEDS: [UNRECOGNIZED DRUG - OTHER] PO SCH (16:37)
[2022-03-05] MEDS: MYCOPHENOLATE 180 MG PO SCH (16:37)
--- NOTE | 2022-03-05 16:45 | NUR ---
PATIENT STATED THAT HE WILL LIKE TO TALK TO THE INSTRUCTOR KINDERGARTEN SO I CALLED THE INSTRUCTOR KINDERGARTEN SHEY AND SPOKE WITH HER NOTIFIED HER THAT THE PATIENT WILL LIKE TO TALK WITH HER AND SHE STATED THAT SHE WILL NEED TO CALL [facility] TO SEE IF SHE WILL BE ABLE TO SEE PATIENT TODAY
--- NOTE | 2022-03-05 17:01 | NUR ---
CALL RECEIVED FROM [facility] WORKING SUPERVISOR STATED THAT SHE SPOKE WITH THE PATIENT AND WANTED UU TO KNOW THAT HIS [facility] CHOICE IS [facility] WILL ENDORSE TO THE EMPLOYEE RELATIONS DIRECTOR IN AM ALSO CONCERNED ABOUT HIS INSULIN WHICH WE ARE GIVING HIM THE INSULIN ORDERED PER HIS SLIDING SCALE.
--- NOTE | 2022-03-05 20:00 | NUR ---
RECEIVED PATIENT RESTING ON BED. [id number]. NO PAIN COMPLAINT.
[2022-03-05] MEDS: SIMVASTATIN 40 MG TABLET PO SCH (21:49)
[2022-03-05] MEDS: ACETAMINOPHEN 325 MG TABLET PO PRN (22:47)
--- NOTE | 2022-03-05 22:48 | NUR ---
patient complain of right shoulder pain 2-3/10 on pain scale. gave tylenol 650mg prn as ordered. will reassess in an hour.
--- NOTE | 2022-03-05 23:40 | NUR ---
tylenol effective. patient verbalized reduced pain 1/10 on pain scale.
--- NOTE | 2022-03-06 03:40 | NUR ---
Patient verbalized discomfort/pain at right shoulder. prn tylenol was offered but patient refused. intead patient ask for an heat pack. will continue to monitor
[2022-03-06] MEDS: BLOOD SUGAR DIAGNOSTIC 1 EACH STRIP VI SCH ×4 (08:05→20:57)
--- NOTE | 2022-03-06 08:30 | NUR ---
awake alert and oriented, denies of pain at this time, slurred speech noted with some right sided weakness noted, explained plan of care- pt to have CT neck with out contrast and MRI Brain without contrast, verbalized understanding, refused tele last night and at this time, d/c tele order given, safety measures in place, call light within reach
[2022-03-06] MEDS: levETIRAcetam 500 MG TABLET PO SCH ×2 (09:00→20:39)
[2022-03-06] MEDS: ASPIRIN EC 81 MG TABLET.DR PO SCH (09:17)
[2022-03-06] MEDS: TACROLIMUS ANHYDROUS 0.5 MG CAPSULE PO SCH ×2 (09:18→20:39)
[2022-03-06] MEDS: CLOPIDOGREL 75 MG TABLET PO SCH (09:20)
[2022-03-06] MEDS: predniSONE 5 MG TABLET PO SCH (09:25)
[2022-03-06] MEDS: [UNRECOGNIZED DRUG - OTHER] PO SCH ×3 (09:33→20:40)
[2022-03-06] MEDS: MYCOPHENOLATE 180 MG PO SCH ×3 (09:33→20:40)
[2022-03-06] MEDS: AMLODIPINE 10 MG TABLET PO SCH (09:35)
[2022-03-06] MEDS: PANTOPRAZOLE SODIUM 40 MG VIAL IV SCH (09:58)
[2022-03-06 11:25] VITALS: BP 139/64
[2022-03-06] MEDS ORDERED: LORAZEPAM 2 MG/1 ML VIAL IV ONE ×3 (12:00→14:15)
[2022-03-06] MEDS: ACETAMINOPHEN 325 MG TABLET PO PRN (12:05)
--- NOTE | 2022-03-06 12:15 | NUR ---
accucheck done 162- not covered,- wisth regular insulin since pt is not going to eat lunch- ambulance is here to take him to [facility] for MRI brain without contrast, Ativan 1 mg given IV and okayed by hospitalist to give when ambulance is here, taken per brant
--- NOTE | 2022-03-06 13:00 | NUR ---
optical technician at [facility] called and states pt is so restless, spoke to hospitalist sophia to give another dose of ativan 1 mg iv in [facility]- called [facility] spooling supervisor and she contacted [facility] spooling supervisor April and faxed order to her
--- NOTE | 2022-03-06 14:00 | NUR ---
MRI NOTE PATIENT ALERT AND COHERENT. FOR MRI PROCEDURE. PATIENT AWARE WITH NO DISTRESS. AGITATED WITH EPISODES OF TRYING TO GET OUT OF MRI BED/TABLE AFTER ATIVAN 2 MG IVP GIVEN PER DEBRA ALTAMIRANO ORDERED. PATIENT WITH 2 EMT AND 2 CHIEF ENGINEER DRILLING AND RECOVERY FOR SAFETY. DEBRA ALTAMIRANO AWARE WITH ORDER TO GIVE ANOTHER ATIVAN 2 MG IV ONCE PRIOR TO PROCEDURE. REPORT GIVEN TO RADHA TOVAR FOR ROBBIE.
--- NOTE | 2022-03-06 14:09 | NUR ---
Ativan 1 mg IV will be given in [facility] by their staff
[2022-03-06] MEDS ORDERED: LORAZEPAM 2 MG/1 ML VIAL IV PRN (14:15)
--- NOTE | 2022-03-06 15:15 | NUR ---
brought back by ambulnce per brant, informed was given Ativan 4mg total in [place], pt asleep, vs taken, sat on r/a is 92%- placed on 2l/nc - sat at 97%, will continue to monitor
[2022-03-06 15:52] VITALS: BP 158/82
[2022-03-06 16:38] VITALS: BP 139/76
--- NOTE | 2022-03-06 16:55 | NUR ---
still very sleepy, moves arms and legs and opens eyes when name is called but goes back to sleep, continue to monitor, sat at 98%
--- NOTE | 2022-03-06 17:59 | NUR ---
UNABLE TO GIVE MYCOPHENOLATE- PT STILL TOO SEDATED
--- NOTE | 2022-03-06 19:30 | NUR ---
report given at bedside to third shift lieutenant rn, pt more awake now, able to say not hungry and wanted to rest further, no distress noted, sat on 2l at 98%, safety measures maintained
[2022-03-06 20:00] VITALS: BP 145/74
[2022-03-06] MEDS: SIMVASTATIN 40 MG TABLET PO SCH (20:39)
--- NOTE | 2022-03-06 20:48 | NUR ---
Lethargic but arousable when received. Speech slurred and garbled. VSS BP 145/74 HR 95 Resp 20 Afebrile. Encouraged to eat. Patient still drowsy upon return from MRI from [facility]. Was able to take meds with apple sauce. Accucheck was 120. called numerous times to see how's the patient doing. aware that patient lethargic but arousable and was given Ativan prior to MRI. All needs attended. Patient' very restless in bed, was trying to get OOB. Bed alarm on. At 2200 patient on the floor slid off the bed. VSS. No LOC noted, no apparent injury noted. in to see patient. Seen by Dr Davey. BP 169/85 HR 86 Hydralazine 10 mg IV given. ABG's ordered, patient refused. On continous pulse ox 93% on 2L via nasal cannula. CXR done. Patient on 1:1 sitter. Will monitor patient. Accucheck repeated, was 84.Will monitor patient. teletypesetter monitor on, patient in sinus rhythm HR 80's.
--- NOTE | 2022-03-06 21:30 | NUR ---
undersigned had a phone communication with patient"s , she had multiple inquiries regarding her 's condition and treatment.primary nurse gave more detailed information regarding pt status.
--- NOTE | 2022-03-07 00:05 | NUR ---
bp at this time 177/90, dr sprague notified, hydralazine 10 mg iv x1 ordered.will continue to monitor.
[2022-03-07] MEDS ORDERED: hydrALAZINE HCL 20 MG/1 ML VIAL IV PRN (00:15)
[2022-03-07 00:38] VITALS: BP 169/85
--- NOTE | 2022-03-07 01:18 | NUR ---
unable to do abg, pt refused. oxygen inhalation on at 2l/min via nc,saturation is at 93%
--- NOTE | 2022-03-07 01:29 | NUR ---
RT Tried to obtain ABG, Patient and family refused. Nurse Liz addison.
[2022-03-07 04:00] VITALS: BP 125/74
[2022-03-07] MEDS: ACETAMINOPHEN 325 MG TABLET PO PRN (05:10)
[2022-03-07] MEDS: BLOOD SUGAR DIAGNOSTIC 1 EACH STRIP VI SCH (06:33)
--- NOTE | 2022-03-07 06:39 | NUR ---
Patient asleep with 1:1 sitter at bedside. Calm and quiet. VSS No acute distress noted. OOB to the BR with 2 assist. Gait unsteady. Fall risk noted. Complained of generalized pain, Tylenol given. Accucheck @ 0630 was 105. Will monitor patient. BP 125/74 HR 99
[2022-03-07 06:45] LABS: HEMATOCRIT 44.3 % (36.7-47.1); MEAN CORPUSCULAR HEMOGLOBIN 29.8 uug (23.8-33.4); MEAN CORPUSCULAR VOLUME 87.1 fL (73.0-96.2); PLATELET COUNT (AUTO) 204 K/uL (152-348)
[2022-03-07] MEDS ORDERED: PANTOPRAZOLE SODIUM 40 MG TABLET.DR PO SCH (07:00)
[2022-03-07 07:11] LABS: CREATININE 1.4 mg/dL (0.6-1.3); MAGNESIUM 1.5 mg/dL (1.8-2.4); POTASSIUM 3.5 mmol/L (3.5-5.1)
[2022-03-07 07:54] VITALS: BP 116/78
--- NOTE | 2022-03-07 08:00 | NUR ---
Patient is sleeping in bed, easily awaken. Speech is unclear, slurred/ garbled. Able to make his needs known, patient instruction needed to speak slowly and he is able to pronunciate words better. On Telemetry, NSR. No c/o chest pain or SOB. Patient is able to move all extremities equally. Noted to have right shoulder pain, states it is a pain he has had 3 weeks ago and he uses apercreme PRN. Requested order for aspercreme from MD. All needs attended, one on one sitter in place.
[2022-03-07] MEDS: predniSONE 5 MG TABLET PO SCH (08:19)
[2022-03-07 08:20] VITALS: BP 116/78
[2022-03-07] MEDS: CLOPIDOGREL 75 MG TABLET PO SCH (08:20)
[2022-03-07] MEDS: AMLODIPINE 10 MG TABLET PO SCH (08:20)
[2022-03-07] MEDS: ASPIRIN EC 81 MG TABLET.DR PO SCH (08:20)
[2022-03-07] MEDS: levETIRAcetam 500 MG TABLET PO SCH (08:20)
[2022-03-07] MEDS ORDERED: MISCELLANEOUS MED XX PRN (08:45)
--- NOTE | 2022-03-07 09:00 | NUR ---
Patient is severely agitated, attempting to get out of bed, swinging his legs out of bed. one on one sitter, redirection provided with minimal help. PT called to work with patient immediately. PT able to come assess patient and walk with walker. He needs one to 2 person assist. Patient attempting to walk out of hospital during ambulation, redirected back to bed. Patient is screaming and grabbing staff forcefully. Tere called and left a message to inform of behavior.
[2022-03-07] MEDS: TACROLIMUS ANHYDROUS 0.5 MG CAPSULE PO SCH (09:30)
--- NOTE | 2022-03-07 09:30 | NUR ---
patient removed telemetry box and pulling leads off chest. Patient very upset, and waiting to go home. Made aware has been called and we are waiting for a call back. No DC orders at this time. One on one sitter continued.
[2022-03-07] MEDS ORDERED: [UNRECOGNIZED DRUG - OTHER] TOP PRN (09:45)
[2022-03-07] MEDS ORDERED: MAGNESIUM SULFATE/D5W 100 ML IV SCH (10:00)
--- NOTE | 2022-03-07 10:00 | NUR ---
Spoke to and patient. Per she is sending the patients mobile lounge driver or operator to pick him up in 40 minutes. Explained that patient has not been discharged and would be leaving AMA if patient is not discharged by MD. and patient in understanding and states he will leave AMA if needed. RESEARCH PROJECT COORDINATOR Shilpi made aware and will see if she can safely discharge.
[2022-03-07] MEDS ORDERED: AMOX1TAB16 PO (10:27)
[2022-03-07] MEDS ORDERED: AZIT250T13 PO (10:31)
--- NOTE | 2022-03-07 11:00 | NUR ---
Patient dedicated truck driver is out side to pick him up, patient is being assisted to Wheelchair for transport by staff for discharge.
--- NOTE | 2022-03-07 11:20 | NUR ---
Patient discharged by Shilpi SOLARES. Orders given for ABX bid for 10 days and PT/Ot/ST at home. Susi BOYCE will try to find a HH provided. Patient is very upset and requesting MRI records. Explained MRI records may be retrieved from medical records with written consent. Patient is adamant and attempting to get out of wheelchair to walk to medical records. Attempted to explain to patient procedure for medical records but he began yelling. Called who told patient to go home and she will get records at a later date but patient still upset and asking for a cabin equipment supervisor. Director, Katia able to speak to patient and patient signed release of medical record form so can cook pickled meat records at a later date. aware of discharge orders.
== END 2022-03-07 11:20 | disposition home health service (06) | DRG 64 ==
LOC: ER 13:48 → TELE3 20:18 → MEDSURG3 03-07 10:01
PROVIDERS: ADMIT Registered Nurse; ATTEND Registered Nurse
DX: I63.9 Cerebral infarction, unspecified (principal); J69.0 Pneumonitis due to inhalation of food and vomit; Z94.0 Kidney transplant status; R47.81 Slurred speech; G83.21 Monoplegia of upper limb affecting right dominant side; R29.702 NIHSS score 2; G40.909 Epilepsy, unspecified, not intractable, without status epilepticus; E66.8 Other obesity; Z68.30 Body mass index [BMI] 30.0-30.9, adult; Z86.73 Personal history of transient ischemic attack (TIA), and cerebral infarction without residual deficits; Z79.4 Long term (current) use of insulin; Z79.02 Long term (current) use of antithrombotics/antiplatelets; Z79.899 Other long term (current) drug therapy; E11.649 Type 2 diabetes mellitus with hypoglycemia without coma; E78.5 Hyperlipidemia, unspecified; E11.22 Type 2 diabetes mellitus with diabetic chronic kidney disease; I12.9 Hypertensive chronic kidney disease with stage 1 through stage 4 chronic kidney disease, or unspecified chronic kidney disease; N18.9 Chronic kidney disease, unspecified; Z20.822 Contact with and (suspected) exposure to COVID-19; Z79.82 Long term (current) use of aspirin; Z79.52 Long term (current) use of systemic steroids; F17.210 Nicotine dependence, cigarettes, uncomplicated; J40 Bronchitis, not specified as acute or chronic
CPT/HCPCS: 36415; 70450; 70490; 70551; 71045; 80299; 83735; 84100; 84443; 84484; 85025; 85730; 93005; 93307; 94760; 97161; A4663; C9113; G0378; J0360; J1815; J2060; J7040; J7507; J7512; Q9967

== ENCOUNTER 2022-05-31 12:05 | Inpatient (IN) | payer BC ==
[~2022-05-31] VITALS: Ht 172.7 cm; Wt 90.7 kg
[~2022-05-31 12:05] MED LIST changes: +AMOX1TAB16 PO; -CEPH500C2 PO; -FLUO20CA36 PO; -METH4TAB3 PO; +ROSU20TA32 PO; -SIMV10TA98 PO; -SULF1TAB48 PO
--- NOTE | 2022-05-31 12:31 | NUR ---
Dr Bowers at the [facility] for MSE.
[2022-05-31 12:58] LABS: HEMATOCRIT 44.9 % (36.7-47.1); MEAN CORPUSCULAR HEMOGLOBIN 29.2 uug (23.8-33.4); MEAN CORPUSCULAR VOLUME 90.2 fL (73.0-96.2); PLATELET COUNT (AUTO) 224 K/uL (152-348)
[2022-05-31 13:21] LABS: BILIRUBIN,TOTAL 0.5 mg/dL (0.2-1.0); CREATININE 1.4 mg/dL (0.6-1.3)
--- NOTE | 2022-05-31 13:39 | NUR ---
Patient is resting comfortably in bed with eyes closed, NAD noted. Lunch tray offered earlier and pt declined.
[2022-05-31 14:55] LABS: *BILIRUBIN,URIN NEGATIVE (NEGATIVE); *BLOOD, URINE NEGATIVE (NEGATIVE); *CLARITY,URINE CLEAR (CLEAR); *COLOR,URINE YELLOW (YELLOW); *KETONES,URINE NEGATIVE (NEGATIVE); *UROBILINOGEN,URINE 0.2 E.U./dl (NORMAL); LEUKOCYTE ESTERASE ,URINE NEGATIVE (NEGATIVE); NITRITE, URINE NEGATIVE (NEGATIVE); UGLUCOSE NEGATIVE (NEGATIVE)
[2022-05-31] MEDS ORDERED: POTASSIUM CHLORIDE 200 ML ONE (15:41)
[2022-05-31] MEDS: POTASSIUM CHLORIDE 50 ML IV SCH ×4 (15:42→19:52)
[2022-05-31] MEDS ORDERED: METOPROLOL TARTRATE 25 MG TABLET PO SCH (17:00)
[2022-05-31] MEDS ORDERED: ACETAMINOPHEN 325 MG TABLET PO PRN (17:00)
[2022-05-31] MEDS ORDERED: IV D5 1/2 NS 1000 ML 1,000 ML IV PRN (17:00)
[2022-05-31] MEDS ORDERED: REMEDY ESSENTIAL ZINC PASTE 113 GM TP PRN (17:00)
[2022-05-31] MEDS ORDERED: ONDANSETRON 4 MG/2 ML VIAL IV PRN (17:00)
--- NOTE | 2022-05-31 17:30 | NUR ---
Patient is resting comfortably in bed with eyes closed,NAD noted.
--- NOTE | 2022-05-31 18:10 | NUR ---
Dinner nazaniny provided, pt states he is ording his own.
[2022-05-31 20:00] VITALS: BP 137/75
--- NOTE | 2022-05-31 20:00 | NUR ---
PATIENT AWAKE IN BED. STATING HE FEELS LIKE HIS SUGAR MIGHT BE LOW. CHECKED PATIENTS BLOOD SUGAR PER REQUEST. RECEIVED 64. PATIENT HAS FOOD AT BEDSIDE. DENIES ANY PAIN OR DISCOMFORT. CALL LIGHT IN REACH. ALL NEEDS ATTENDED. WILL CONTINUE TO MONITOR AND ASSESS.
[2022-05-31] MEDS: levETIRAcetam 500 MG TABLET PO SCH (20:31)
[2022-05-31] MEDS ORDERED: ATORVASTATIN 40 MG TABLET PO SCH (21:00)
[2022-05-31] MEDS ORDERED: TACROLIMUS ANHYDROUS 0.5 MG CAPSULE PO SCH (21:00)
--- NOTE | 2022-05-31 21:30 | NUR ---
CALLED OUT TO DR. CAPONE TO ASK IF HE WANTED PATIENT TO HAVE ACCU-CHECKS. NO NEW ORDERS PER . TELECOM ASSISTANT NOTIFIED.
[2022-06-01] MEDS ORDERED: LIDOCAINE 5% PATCH TD ONE (02:15)
[2022-06-01] MEDS ORDERED: IBUPROFEN 600 MG TABLET PO PRN (02:15)
[2022-06-01 04:00] VITALS: BP 134/66
--- NOTE | 2022-06-01 06:30 | NUR ---
PATIENT AWAKE IN BED. REFUSING FOR IVF AT THIS TIME. INFORMED PATIENT OF IMPORTANCE OF RECEIVING IVF, PATIENT IS STILL REFUSING. INTELLIGENCE OFFICER NOTIFIED. REFUSED PROTONIX MEDICATION AT THIS TIME. VS WNL. WILL CONTINUE TO MONITOR AND ASSESS.
[2022-06-01] MEDS ORDERED: PANTOPRAZOLE SODIUM 40 MG TABLET.DR PO SCH (07:00)
[2022-06-01 07:03] LABS: HEMATOCRIT 44.2 % (36.7-47.1); MEAN CORPUSCULAR HEMOGLOBIN 29.3 uug (23.8-33.4); MEAN CORPUSCULAR VOLUME 89.6 fL (73.0-96.2); PLATELET COUNT (AUTO) 201 K/uL (152-348)
[2022-06-01 07:26] LABS: BILIRUBIN,TOTAL 0.3 mg/dL (0.2-1.0); CREATININE 1.4 mg/dL (0.6-1.3); MAGNESIUM 1.7 mg/dL (1.8-2.4); PHOSPHOROUS 2.1 mg/dL (2.5-4.9); POTASSIUM 3.7 mmol/L (3.5-5.1); TOTAL PROTEIN, SERUM 6.7 g/dL (6.4-8.2)
[2022-06-01 07:47] VITALS: BP 121/87
[2022-06-01] MEDS: levETIRAcetam 500 MG TABLET PO SCH (08:47)
[2022-06-01] MEDS ORDERED: CLOPIDOGREL 75 MG TABLET PO SCH (09:00)
[2022-06-01] MEDS ORDERED: AMLODIPINE 10 MG TABLET PO SCH (09:00)
[2022-06-01] MEDS ORDERED: ASPIRIN 81 MG TAB.CHEW PO SCH (09:00)
[2022-06-01] MEDS ORDERED: predniSONE 5 MG TABLET PO SCH (09:00)
[2022-06-01] MEDS ORDERED: TACROLIMUS ANHYDROUS 0.5 MG CAPSULE PO SCH (09:00)
[2022-06-01 09:04] VITALS: BP 128/50
[2022-06-01] MEDS: MAGNESIUM SULFATE/D5W 100 ML IV SCH ×2 (09:55→10:57)
--- NOTE | 2022-06-01 14:03 | NUR ---
Pt has been discharged home. All personal belongings and medications returned to pt, unable to sign but visually and verbally agreed that all is in place and at hand. All discharge education given to pt and over the phone. Pt to follow up with doing CT exam of pancreas as outpatient and follow up with primary scrum product owner. Provider instructions included in teaching. IV and ID bands remove. No signs of hypoglycemia noted. Pt is stable with no acute distress. Pt picked up by [facility], was wheeled down to car.
== END 2022-06-01 14:00 | disposition home or self-care (01) | DRG 638 ==
LOC: ER 12:05 → TELE3 18:38 → MEDSURG3 23:52
PROVIDERS: ADMIT Internal Medicine; ATTEND Internal Medicine
DX: E11.649 Type 2 diabetes mellitus with hypoglycemia without coma (principal); I69.351 Hemiplegia and hemiparesis following cerebral infarction affecting right dominant side; T86.12 Kidney transplant failure; E87.6 Hypokalemia; E78.5 Hyperlipidemia, unspecified; N17.0 Acute kidney failure with tubular necrosis; Y83.0 Surgical operation with transplant of whole organ as the cause of abnormal reaction of the patient, or of later complication, without mention of misadventure at the time of the procedure; Z79.82 Long term (current) use of aspirin; Z87.891 Personal history of nicotine dependence; Z79.4 Long term (current) use of insulin; R48.0 Dyslexia and alexia; Z79.899 Other long term (current) drug therapy; Z20.822 Contact with and (suspected) exposure to COVID-19; Y92.009 Unspecified place in unspecified non-institutional (private) residence as the place of occurrence of the external cause; I10 Essential (primary) hypertension
CPT/HCPCS: 36415; 71045; 83690; 83735; 84100; 84484; 85025; 87040; 87086; 93005; A4663; G0378; J3475; J3480; J7507; J7512

== ENCOUNTER 2022-06-20 20:44 | Inpatient (IN) | payer BC ==
[~2022-06-20] VITALS: Ht 172.7 cm; Wt 85.9 kg
[~2022-06-20 20:44] MED LIST changes: -METO25TA50 PO
--- NOTE | 2022-06-20 21:20 | NUR ---
Dr. Rashid at bedside. MSE in progress.
[2022-06-20 22:18] LABS: HEMATOCRIT 43.5 % (36.7-47.1); MEAN CORPUSCULAR HEMOGLOBIN 30.2 uug (23.8-33.4); MEAN CORPUSCULAR VOLUME 90.1 fL (73.0-96.2); PLATELET COUNT (AUTO) 194 K/uL (152-348)
[2022-06-20 22:54] LABS: CARBON DIOXIDE 29 mmol/L (21-32); CHLORIDE 106 mmol/L (98-107); CREATININE 1.7 mg/dL (0.6-1.3); GLUCOSE 147 mg/dL (74-106); POTASSIUM 3.5 mmol/L (3.5-5.1); UREA NITROGEN, BLOOD 18 mg/dL (7-18)
[2022-06-20 23:08] LABS: ALANINE AMINOTRANSFERASE 19 U/L (16-63); ALKALINE PHOSPHATASE 37 U/L (50-136); ASPARTATE AMINOTRANSFERASE 7 U/L (15-37); BILIRUBIN,TOTAL 0.7 mg/dL (0.2-1.0)
[2022-06-20 23:24] LABS: BILIRUBIN,DIRECT 0.2 mg/dL (0.0-0.2)
[2022-06-21] MEDS ORDERED: LIDOCAINE 5% PATCH TD ONE ×2 (00:02)
[2022-06-21] MEDS ORDERED: AZITHROMYCIN IV 500 MG in IV DEXTROSE 5% 250 ML IV ONE (00:15)
[2022-06-21] MEDS ORDERED: PIPERACILLIN SODIUM/TAZOBACTAM 3.375 G in IV DEXTROSE 5% 50 ML IV ONE (00:15)
[2022-06-21] MEDS ORDERED: IV NORMAL SALINE 500 ML IV ONE (00:15)
[2022-06-21] MEDS ORDERED: PIPERACILLIN/TAZOBACTAM/D5W 50 ML IV ONE (00:29)
[2022-06-21] MEDS ORDERED: AZITHROMYCIN 500MG/ D5W 250ML IVPB **ER PYXIS ONLY IV ONE (00:29)
[2022-06-21] MEDS ORDERED: MORPHINE SULFATE 4 MG/1 ML DISP.SYRIN ONE (00:40)
[2022-06-21] MEDS ORDERED: MORPHINE SULFATE 4 MG/1 ML DISP.SYRIN IV ONE (00:45)
--- NOTE | 2022-06-21 01:02 | NUR ---
Called [facility] for panel call, admitting doctor ASSET LIABILITY ANALYST Reyes Anderson.
--- NOTE | 2022-06-21 01:13 | NUR ---
Patient accepted for [facility].
--- NOTE | 2022-06-21 01:15 | NUR ---
Called for TELE bed. Will call again in 15 min.
[2022-06-21] MEDS ORDERED: ACETAMINOPHEN/CODEINE 300-30 MG TABLET ONE (02:20)
--- NOTE | 2022-06-21 03:10 | NUR ---
Admitted a 56 years old male with Dx of Aspiration Pneumonitis. Patient AAOx3-4. Speech slurred at times. In no acute distress. Complain of some sore throat. Patient was given Tylenol #3 at the ER at 0222 per MANNEQUIN REFINISHERJENAE Chandler. Iv site on right FA intact and patent. NSR on tele with HR of 73/min. Routine admission care done. Plan of care initiated. Safety measure initiated and call light within reached.
--- NOTE | 2022-06-21 03:15 | NUR ---
Pt. admitted to tele rm 320, under care of PREFABRICATED HOUSES TRIMMER Reyes Anderson. Belongs List completed April JENAE laura of patient's arrival to unit.
[2022-06-21 04:22] VITALS: BP 122/60
[2022-06-21] MEDS ORDERED: ACETAMINOPHEN 325 MG TABLET PO PRN (04:30)
[2022-06-21] MEDS ORDERED: INSULIN REGULAR, HUMAN 300 UNITS/3 ML VIAL SQ PRN (04:30)
[2022-06-21] MEDS ORDERED: CEFTRIAXONE 1 G in IV DEXTROSE 5% 50 ML IV SCH (04:30)
[2022-06-21] MEDS ORDERED: ONDANSETRON 4 MG/2 ML VIAL IV PRN (04:30)
[2022-06-21] MEDS ORDERED: MAGNESIUM HYDROXIDE 30 ML LIQUID UDC PO PRN (04:30)
[2022-06-21] MEDS ORDERED: IPRATROPIUM BROMIDE 0.5 MG/2.5 ML NEBU NEB PRN (04:30)
[2022-06-21] MEDS ORDERED: REMEDY ESSENTIAL ZINC PASTE 113 GM TP PRN (04:30)
[2022-06-21] MEDS ORDERED: ALBUTEROL SULFATE 2.5 MG/ 0.5 ML NEBU NEB PRN (04:30)
[2022-06-21] MEDS ORDERED: DEXTROSE 50% 50 ML DISP.SYRIN IV PRN (04:30)
[2022-06-21] MEDS ORDERED: ENOXAPARIN SODIUM 40 MG/0.4 ML DISP.SYRIN SQ SCH (04:30)
[2022-06-21] MEDS: IV NS 1000 ML 1,000 ML IV PRN ×2 (04:55→18:40)
[2022-06-21] MEDS ORDERED: CEFTRIAXONE 1 G VIAL ONE (05:12)
--- NOTE | 2022-06-21 05:40 | NUR ---
Asleep at this time. No further complain of pain. No SOB. IV site on right FA intact and patent. IVF infusing. No adverse effect noted from IV antibiotic. Needs attended to and met. Safety measure maintained and call light within reached.
[2022-06-21] MEDS: PANTOPRAZOLE SODIUM 40 MG TABLET.DR PO SCH (06:15)
[2022-06-21] MEDS: BLOOD SUGAR DIAGNOSTIC 1 EACH STRIP VI SCH ×4 (06:31→21:06)
[2022-06-21 07:25] LABS: HEMATOCRIT 39.3 % (36.7-47.1); MEAN CORPUSCULAR HEMOGLOBIN 30.2 uug (23.8-33.4); MEAN CORPUSCULAR VOLUME 89.8 fL (73.0-96.2); PLATELET COUNT (AUTO) 187 K/uL (152-348)
[2022-06-21 07:29] LABS: CREATININE 1.7 mg/dL (0.6-1.3); POTASSIUM 3.4 mmol/L (3.5-5.1)
[2022-06-21] MEDS ORDERED: POTASSIUM CHLORIDE 20 MEQ TAB.PRT.SR PO ONE (08:15)
[2022-06-21] MEDS ORDERED: TACROLIMUS ANHYDROUS 1 MG CAPSULE PO SCH ×2 (09:00→21:00)
[2022-06-21] MEDS ORDERED: MYCOPHENOLATE SODIUM 360 MG PO SCH (09:00)
[2022-06-21] MEDS: predniSONE 10 MG TABLET PO SCH (09:22)
[2022-06-21] MEDS: ASPIRIN 81 MG TAB.CHEW PO SCH (09:22)
[2022-06-21] MEDS: CLOPIDOGREL 75 MG TABLET PO SCH (09:22)
[2022-06-21] MEDS: levETIRAcetam 500 MG TABLET PO SCH ×2 (09:22→20:27)
[2022-06-21] MEDS: TACROLIMUS ANHYDROUS 0.5 MG CAPSULE PO SCH ×2 (09:23→20:27)
[2022-06-21] MEDS: AMLODIPINE 10 MG TABLET PO SCH (09:28)
[2022-06-21] MEDS: GUAIFENESIN/CODEINE 5 ML LIQUID UDC PO PRN ×3 (10:15→22:33)
[2022-06-21 10:41] VITALS: BP 169/75
--- NOTE | 2022-06-21 12:19 | NUR ---
Patient home meds found in patient's belongings. Brought down to pharmacy per request.
[2022-06-21] MEDS ORDERED: INSU300I SQ (13:52)
[2022-06-21] MEDS: [UNRECOGNIZED DRUG - OTHER] PO SCH ×2 (13:56→20:27)
[2022-06-21] MEDS: MYCOPHENOLATE 180 MG PO SCH ×2 (13:56→20:27)
[2022-06-21] MEDS: INSULIN REGULAR, HUMAN 300 UNIT/3 ML VIAL SQ PRN ×2 (16:10→21:05)
--- NOTE | 2022-06-21 18:34 | NUR ---
Patient tolerated care well throughout shift with no complaints of pain. Nausea and vomiting during shift, with appropriate medicinal interventions provided. Patient currently receiving IV fluids with patent and intact site. Patient able to use bathroom with assistance. updated on patient's plan of care. Bed left in lowest position with call light within reach. Will endorse information to PM nurse.
[2022-06-21 20:07] VITALS: BP 154/74
[2022-06-21] MEDS ORDERED: ATORVASTATIN 40 MG TABLET PO SCH (21:00)
[2022-06-21] MEDS ORDERED: AZITHROMYCIN IV 500 MG in IV DEXTROSE 5% 250 ML IV SCH (21:00)
[2022-06-21] MEDS: ZOLPIDEM 5 MG TABLET PO PRN (22:37)
[2022-06-21] MEDS: HYDROCODONE/APAP 10-325 MG TABLET PO PRN (23:20)
[2022-06-22 00:09] VITALS: BP 135/72
[2022-06-22] MEDS: AZITHROMYCIN IV 500 MG in IV DEXTROSE 5% 250 ML IV SCH (01:12)
[2022-06-22 04:12] VITALS: BP 148/67
[2022-06-22] MEDS: CEFTRIAXONE 1 G in IV DEXTROSE 5% 50 ML IV SCH (05:29)
[2022-06-22] MEDS: GUAIFENESIN/CODEINE 5 ML LIQUID UDC PO PRN (05:44)
[2022-06-22] MEDS: PANTOPRAZOLE SODIUM 40 MG TABLET.DR PO SCH (06:10)
[2022-06-22] MEDS: BLOOD SUGAR DIAGNOSTIC 1 EACH STRIP VI SCH ×4 (06:22→21:38)
[2022-06-22 07:06] LABS: HEMATOCRIT 40.5 % (36.7-47.1); MEAN CORPUSCULAR HEMOGLOBIN 30.2 uug (23.8-33.4); MEAN CORPUSCULAR VOLUME 90.8 fL (73.0-96.2); PLATELET COUNT (AUTO) 180 K/uL (152-348)
[2022-06-22 07:53] LABS: BILIRUBIN,TOTAL 0.4 mg/dL (0.2-1.0); CREATININE 1.6 mg/dL (0.6-1.3); MAGNESIUM 1.6 mg/dL (1.8-2.4); PHOSPHOROUS 2.5 mg/dL (2.5-4.9); POTASSIUM 3.7 mmol/L (3.5-5.1); TOTAL PROTEIN, SERUM 6.6 g/dL (6.4-8.2)
[2022-06-22] MEDS ORDERED: MAGNESIUM SULFATE/D5W 100 ML IV SCH (08:30)
[2022-06-22] MEDS: ASPIRIN 81 MG TAB.CHEW PO SCH (09:18)
[2022-06-22] MEDS: levETIRAcetam 500 MG TABLET PO SCH ×2 (09:18→21:37)
[2022-06-22] MEDS: TACROLIMUS ANHYDROUS 0.5 MG CAPSULE PO SCH ×2 (09:19→21:37)
[2022-06-22] MEDS: predniSONE 10 MG TABLET PO SCH (09:20)
[2022-06-22] MEDS: CLOPIDOGREL 75 MG TABLET PO SCH (09:20)
[2022-06-22] MEDS: AMLODIPINE 10 MG TABLET PO SCH (09:20)
[2022-06-22] MEDS: ENOXAPARIN SODIUM 40 MG/0.4 ML DISP.SYRIN SQ SCH (09:22)
[2022-06-22] MEDS: [UNRECOGNIZED DRUG - OTHER] PO SCH ×2 (09:30→17:43)
[2022-06-22] MEDS: MYCOPHENOLATE 180 MG PO SCH ×2 (09:30→17:43)
[2022-06-22 11:58] VITALS: BP 152/77
[2022-06-22] MEDS: INSULIN REGULAR, HUMAN 300 UNIT/3 ML VIAL SQ PRN ×3 (12:18→21:28)
[2022-06-22] MEDS: IV NS 1000 ML 1,000 ML IV PRN (13:31)
--- NOTE | 2022-06-22 19:05 | NUR ---
Patient with no episodes of cough during shift. On R/A and tolerating well, saturating @ 96-97%. with slurred speech but is alert and able to make self understood. called multiple times for updates, questions answered and concerns addressed. Per Dr. Saini he will see patient some time today. Patient informed. US kidneys done today relayed to Dr. Toro, no orders given at this time.
[2022-06-22 20:00] VITALS: BP 129/67
[2022-06-22] MEDS: HYDROCODONE/APAP 10-325 MG TABLET PO PRN (21:37)
[2022-06-22] MEDS: ZOLPIDEM 5 MG TABLET PO PRN (21:37)
[2022-06-23] MEDS: GUAIFENESIN/CODEINE 5 ML LIQUID UDC PO PRN (01:39)
[2022-06-23] MEDS: AZITHROMYCIN IV 500 MG in IV DEXTROSE 5% 250 ML IV SCH ×2 (01:55→02:00)
[2022-06-23 04:00] VITALS: BP 132/60
[2022-06-23] MEDS: PANTOPRAZOLE SODIUM 40 MG TABLET.DR PO SCH (05:31)
[2022-06-23] MEDS: CEFTRIAXONE 1 G in IV DEXTROSE 5% 50 ML IV SCH (05:31)
[2022-06-23] MEDS: BLOOD SUGAR DIAGNOSTIC 1 EACH STRIP VI SCH (06:41)
[2022-06-23 06:52] LABS: HEMATOCRIT 41.5 % (36.7-47.1); MEAN CORPUSCULAR HEMOGLOBIN 29.4 uug (23.8-33.4); MEAN CORPUSCULAR VOLUME 89.2 fL (73.0-96.2); PLATELET COUNT (AUTO) 196 K/uL (152-348)
[2022-06-23 07:06] LABS: CREATININE 1.3 mg/dL (0.6-1.3); PHOSPHOROUS 2.8 mg/dL (2.5-4.9); POTASSIUM 3.7 mmol/L (3.5-5.1)
[2022-06-23] MEDS: INSULIN REGULAR, HUMAN 300 UNIT/3 ML VIAL SQ PRN (09:12)
--- NOTE | 2022-06-23 09:30 | NUR ---
Patient had breakfast, in bed, feeling good, not pain or any distress were noticed or verbalized by the patient
[2022-06-23] MEDS: TACROLIMUS ANHYDROUS 0.5 MG CAPSULE PO SCH (09:43)
[2022-06-23] MEDS: ASPIRIN 81 MG TAB.CHEW PO SCH (09:43)
[2022-06-23] MEDS: predniSONE 10 MG TABLET PO SCH (09:43)
[2022-06-23] MEDS: CLOPIDOGREL 75 MG TABLET PO SCH (09:43)
[2022-06-23] MEDS: levETIRAcetam 500 MG TABLET PO SCH (09:43)
[2022-06-23] MEDS: MYCOPHENOLATE 180 MG PO SCH (09:44)
[2022-06-23] MEDS: [UNRECOGNIZED DRUG - OTHER] PO SCH (09:44)
[2022-06-23 09:54] VITALS: BP 152/71
[2022-06-23] MEDS: AMLODIPINE 10 MG TABLET PO SCH (09:54)
[2022-06-23] MEDS: ENOXAPARIN SODIUM 40 MG/0.4 ML DISP.SYRIN SQ SCH (09:56)
[2022-06-23] MEDS ORDERED: AMOX-427 PO (10:33)
[2022-06-23] MEDS ORDERED: HYDR-3980 PO (10:33)
--- NOTE | 2022-06-23 11:37 | NUR ---
Patient got picked up by [employer] and was stable at discharge
== END 2022-06-23 11:00 | disposition home or self-care (01) | DRG 193 ==
LOC: ER 20:44 → TELE3 06-21 02:04 → MEDSURG3 06-22 08:20
PROVIDERS: ADMIT Internal Medicine; ATTEND Internal Medicine
DX: J18.0 Bronchopneumonia, unspecified organism (principal); I50.31 Acute diastolic (congestive) heart failure; E11.22 Type 2 diabetes mellitus with diabetic chronic kidney disease; E66.9 Obesity, unspecified; E78.5 Hyperlipidemia, unspecified; Z20.822 Contact with and (suspected) exposure to COVID-19; Z86.16 Personal history of COVID-19; Z86.73 Personal history of transient ischemic attack (TIA), and cerebral infarction without residual deficits; Z87.01 Personal history of pneumonia (recurrent); Z79.899 Other long term (current) drug therapy; Z87.891 Personal history of nicotine dependence; I25.10 Atherosclerotic heart disease of native coronary artery without angina pectoris; Z79.4 Long term (current) use of insulin; G40.909 Epilepsy, unspecified, not intractable, without status epilepticus; Z68.28 Body mass index [BMI] 28.0-28.9, adult; N40.0 Benign prostatic hyperplasia without lower urinary tract symptoms; Z94.0 Kidney transplant status; Z79.82 Long term (current) use of aspirin
CPT/HCPCS: 36415; 71045; 76770; 83605; 83735; 84100; 84484; 85025; 87040; 87400; 93005; A4663; G0378; J0456; J0696; J1650; J1815; J2270; J2405; J2543; J3475; J7040; J7050; J7507; J7512

== ENCOUNTER 2024-04-10 15:00 | Inpatient (IN) | payer BC ==
[~2024-04-10] VITALS: Ht 172.7 cm; Wt 74.4 kg
[~2024-04-10 15:00] MED LIST changes: +AMOX-427 PO; -AMOX1TAB16 PO; -AZIT250T13 PO; +HYDR-3980 PO
[2024-04-10 15:43] LABS: BASOPHILS % (AUTO) 0.4 % (0.0-2.0); EOSINOPHILS # (AUTO) 0.1 K/uL (0.0-0.7); HEMATOCRIT 46.3 % (36.7-47.1); HEMOGLOBIN 15.1 g/dL (12.5-16.3); LYMPHOCYTES % (AUTO) 18.8 % (20.5-51.5); MEAN CORPUSCULAR HEMOGLOBIN 28.6 uug (23.8-33.4); MEAN CORPUSCULAR HGB CONC 33 g/dL (32.5-36.3); MEAN CORPUSCULAR VOLUME 87.6 fL (73.0-96.2); MONOCYTES # (AUTO) 0.3 K/uL (0.1-1.30); MONOCYTES % (AUTO) 4.9 % (0.0-11.0); NEUTROPHILS % (AUTO) 74.9 % (38.5-71.5); PLATELET COUNT (AUTO) 209 K/uL (152-348); RED BLOOD CELL COUNT(AUTO) 5.28 MIL/uL (4.06-5.63); WHITE BLOOD COUNT (AUTO) 5.3 K/uL (3.6-10.2)
[2024-04-10 15:51] LABS: CALCIUM 9.9 mg/dL (8.5-10.1); CARBON DIOXIDE 29 mmol/L (21-32); CHLORIDE 100 mmol/L (98-107); CREATININE 1.4 mg/dL (0.6-1.3); GLUCOSE 186 mg/dL (74-106); POTASSIUM 4.1 mmol/L (3.5-5.1); SODIUM SERUM 136 mmol/L (136-145); UREA NITROGEN, BLOOD 16 mg/dL (7-18)
[2024-04-10 15:52] LABS: DIFFERENTIAL COMMENT 1
[2024-04-10 15:54] LABS: AMMONIA < 10 umol/L (11-32)
[2024-04-10 16:00] LABS: ACETAMINOPHEN < 2.0 ug/mL (10-30); ALANINE AMINOTRANSFERASE 21 U/L (16-63); ALBUMIN 3.3 g/dL (3.4-5.0); ALKALINE PHOSPHATASE 43 U/L (50-136); ASPARTATE AMINOTRANSFERASE 14 U/L (15-37); BILIRUBIN,DIRECT 0.2 mg/dL (0.0-0.2); BILIRUBIN,TOTAL 0.7 mg/dL (0.2-1.0); TOTAL PROTEIN, SERUM 6.9 g/dL (6.4-8.2)
[2024-04-10 16:09] LABS: ETHANOL < 3 MG/DL (0-10)
[2024-04-10] MEDS: DEXAMETHASONE SOD PHOSPHATE 4 MG INJ IV ONE (16:30)
[2024-04-10] MEDS ORDERED: ACYCLOVIR IV 1,000 MG in IV DEXTROSE 5% 250 ML IV SCH (16:30)
[2024-04-10] MEDS: IV NORMAL SALINE 1000 ML BAG IV ONE (16:30)
[2024-04-10] MEDS ORDERED: VANCOMYCIN IV 1,000 MG in IV DEXTROSE 5% 250 ML IV ONE (16:30)
[2024-04-10] MEDS ORDERED: CEFTRIAXONE 2 G in IV DEXTROSE 5% 100 ML IV ONE (16:30)
[2024-04-10] MEDS ORDERED: ACYCLOVIR 500 MG VIAL IV ONE (18:27)
[2024-04-10] MEDS ORDERED: CEFTRIAXONE /D5W 50ML IVPB **ER PYXIS IV ONE (18:27)
[2024-04-10] MEDS ORDERED: VANCOMYCIN IV 0 ML ONE (18:27)
[2024-04-10] MEDS ORDERED: DEXAMETHASONE SOD PHOSPHATE 10 MG INJ ONE (18:27)
[2024-04-10 20:07] LABS: *BILIRUBIN,URIN 1+ (NEGATIVE); *BLOOD, URINE NEGATIVE (NEGATIVE); *CLARITY,URINE CLEAR (CLEAR); *COLOR,URINE YELLOW (YELLOW); *KETONES,URINE 1+ (NEGATIVE); *PROTEIN,URINE 2+ (NEGATIVE); LEUKOCYTE ESTERASE ,URINE NEGATIVE (NEGATIVE); NITRITE, URINE NEGATIVE (NEGATIVE); PH,URINE 5.5 (5.0-8.0); UGLUCOSE 2+ (NEGATIVE)
[2024-04-10 20:13] LABS: *AMPHETAMINE, URINE NEGATIVE (NEGATIVE); *BARBITURATE, URINE NEGATIVE (NEGATIVE); *BENZODIAZEPINE, URINE NEGATIVE (NEGATIVE); *CANNABINOID, URINE NEGATIVE (NEGATIVE); *COCCAINE, URINE POSITIVE (NEGATIVE); *OPIATE, URINE NEGATIVE (NEGATIVE); *PHENCYCLIDINE SCREEN,URINE NEGATIVE (NEGATIVE)
[2024-04-10 20:15] LABS: FENTANYL, URINE NEGATIVE (NEGATIVE)
[2024-04-10 20:19] LABS: BACTERIA,URINE NONE SEEN /HPF (NONE SEEN); RBC,URINE NONE SEEN /HPF (0-3); SQUAMOUS EPITHELIAL CELL,UR FEW /HPF (NONE SEEN); WBC,URINE 0-3 /HPF (0-3)
[2024-04-10] MEDS ORDERED: DEXTROSE 50% 50 ML DISP.SYRIN IV PRN (21:30)
[2024-04-10] MEDS ORDERED: TACROLIMUS ANHYDROUS PO SCH (21:30)
[2024-04-10] MEDS ORDERED: MAGNESIUM HYDROXIDE 30 ML LIQUID UDC PO PRN (21:45)
[2024-04-10] MEDS ORDERED: ACETAMINOPHEN 325 MG TABLET PO PRN (21:45)
[2024-04-10] MEDS ORDERED: ONDANSETRON 4 MG/2 ML VIAL IV PRN (21:45)
[2024-04-10] MEDS ORDERED: REMEDY ESSENTIAL ZINC PASTE 113 GM TP PRN (21:45)
[2024-04-10 23:32] VITALS: BP 152/68; TEMP 98.2; O2SAT 98
[2024-04-11] MEDS: predniSONE 10 MG TABLET PO SCH (00:05)
[2024-04-11] MEDS: IV NS 1000 ML 1,000 ML IV PRN (00:05)
[2024-04-11] MEDS: HYDROCODONE/APAP 10-325 MG TABLET PO PRN (00:19)
[2024-04-11 06:37] LABS: BASOPHILS % (AUTO) 0.1 % (0.0-2.0); HEMATOCRIT 46.2 % (36.7-47.1); LYMPHOCYTES # (AUTO) 0.6 K/uL (0.8-4.8); LYMPHOCYTES % (AUTO) 15.3 % (20.5-51.5); MEAN CORPUSCULAR HEMOGLOBIN 28.1 uug (23.8-33.4); MEAN CORPUSCULAR HGB CONC 32 g/dL (32.5-36.3); MEAN CORPUSCULAR VOLUME 86.9 fL (73.0-96.2); MONOCYTES # (AUTO) 0.1 K/uL (0.1-1.30); MONOCYTES % (AUTO) 2.1 % (0.0-11.0); NEUTROPHILS # (AUTO) 3.4 K/uL (1.8-8.9); NEUTROPHILS % (AUTO) 82.5 % (38.5-71.5); PLATELET COUNT (AUTO) 220 K/uL (152-348); RED BLOOD CELL COUNT(AUTO) 5.32 MIL/uL (4.06-5.63); RED CELL DISTRIBUTION WIDTH 14.3 % (12.1-16.2); WHITE BLOOD COUNT (AUTO) 4.2 K/uL (3.6-10.2)
[2024-04-11 06:51] LABS: DIFFERENTIAL COMMENT 1
[2024-04-11 07:04] LABS: CALCIUM 9.1 mg/dL (8.5-10.1); CREATININE 1.5 mg/dL (0.6-1.3); MAGNESIUM 2.2 mg/dL (1.8-2.4); PHOSPHOROUS 3.5 mg/dL (2.5-4.9); POTASSIUM 4.3 mmol/L (3.5-5.1)
[2024-04-11 07:09] LABS: THYROID STIMULATING HORMONE 0.637 mIU/mL (0.358-3.740)
[2024-04-11] MEDS: BLOOD SUGAR DIAGNOSTIC 1 EACH STRIP VI SCH (07:30)
[2024-04-11 08:15] VITALS: BP 157/78; TEMP 97.6; O2SAT 98
[2024-04-11] MEDS ORDERED: Medication Not On Formulary EA (Tacrolimus Anhydrous (Prograf) 2 CAP) PO SCH (09:00)
[2024-04-11] MEDS: PANTOPRAZOLE SODIUM 40 MG TABLET.DR PO SCH (09:30)
[2024-04-11] MEDS: AMLODIPINE 10 MG TABLET PO SCH (09:30)
[2024-04-11] MEDS: ASPIRIN 81 MG TAB.CHEW PO SCH (09:30)
[2024-04-11] MEDS: CLOPIDOGREL 75 MG TABLET PO SCH (09:30)
[2024-04-11] MEDS: levETIRAcetam 500 MG TABLET PO SCH (09:31)
[2024-04-11] MEDS: ENOXAPARIN SODIUM 40 MG/0.4 ML DISP.SYRIN SQ SCH (09:32)
[2024-04-11] MEDS: INSULIN REGULAR, HUMAN 300 UNIT/3 ML VIAL SQ PRN (09:35)
[2024-04-11] MEDS: [UNRECOGNIZED DRUG - OTHER] PO SCH (12:25)
[2024-04-11] MEDS: MYCOPHENOLIC 180 MG PO SCH (12:25)
[2024-04-11 12:37] VITALS: BP 138/63; TEMP 97.8; O2SAT 96
[2024-04-11 17:00] VITALS: BP 128/69; TEMP 98.1; O2SAT 93
[2024-04-11 20:36] VITALS: BP 126/54; TEMP 98.4; O2SAT 98
[2024-04-11] MEDS: TACROLIMUS ANHYDROUS 0.5 MG CAPSULE PO SCH (21:00)
[2024-04-11] MEDS ORDERED: TACROLIMUS ANHYDROUS 0.5 MG CAPSULE PO SCH (21:00)
[2024-04-11] MEDS: ATORVASTATIN 40 MG TABLET PO SCH (21:12)
[2024-04-11] MEDS: INSULIN GLARGINE,HUM 300 UNITS/3 ML CARTRIDGE SQ SCH (21:18)
[2024-04-12 07:28] LABS: BASOPHILS % (AUTO) 0.5 % (0.0-2.0); EOSINOPHILS # (AUTO) 0.1 K/uL (0.0-0.7); EOSINOPHILS % (AUTO) 1.2 % (0.0-7.0); HEMATOCRIT 43.5 % (36.7-47.1); HEMOGLOBIN 14.1 g/dL (12.5-16.3); LYMPHOCYTES # (AUTO) 1.5 K/uL (0.8-4.8); LYMPHOCYTES % (AUTO) 26.1 % (20.5-51.5); MEAN CORPUSCULAR HEMOGLOBIN 28.1 uug (23.8-33.4); MEAN CORPUSCULAR HGB CONC 33 g/dL (32.5-36.3); MEAN CORPUSCULAR VOLUME 86.6 fL (73.0-96.2); MONOCYTES # (AUTO) 0.3 K/uL (0.1-1.30); MONOCYTES % (AUTO) 5.9 % (0.0-11.0); NEUTROPHILS # (AUTO) 3.8 K/uL (1.8-8.9); NEUTROPHILS % (AUTO) 66.3 % (38.5-71.5); PLATELET COUNT (AUTO) 230 K/uL (152-348); RED BLOOD CELL COUNT(AUTO) 5.03 MIL/uL (4.06-5.63); RED CELL DISTRIBUTION WIDTH 14.8 % (12.1-16.2); WHITE BLOOD COUNT (AUTO) 5.7 K/uL (3.6-10.2)
[2024-04-12 07:39] LABS: DIFFERENTIAL COMMENT 1
[2024-04-12 07:53] LABS: POTASSIUM 3.9 mmol/L (3.5-5.1)
[2024-04-12 07:54] LABS: CALCIUM 9.3 mg/dL (8.5-10.1); CREATININE 1.2 mg/dL (0.6-1.3); MAGNESIUM 2.4 mg/dL (1.8-2.4); PHOSPHOROUS 2.1 mg/dL (2.5-4.9)
[2024-04-12 08:00] VITALS: BP 163/76; TEMP 97.6; O2SAT 98
[2024-04-12] MEDS: TACROLIMUS ANHYDROUS 0.5 MG CAPSULE PO SCH (10:36)
[2024-04-12 16:00] VITALS: BP 157/77; TEMP 97.2; O2SAT 98
[2024-04-12] MEDS: NEUTRA PHOS PACKET PO ONE (17:08)
[2024-04-12] MEDS: INSULIN REGULAR, HUMAN 300 UNIT/3 ML VIAL SQ PRN (17:21)
[2024-04-12] MEDS: INSULIN REGULAR, HUMAN 300 UNITS/3 ML VIAL SQ PRN (21:04)
[2024-04-13] MEDS: diphenhydrAMINE 50 MG CAPSULE PO ONE (10:00)
[2024-04-13 10:09] LABS: BASOPHILS % (AUTO) 0.5 % (0.0-2.0); EOSINOPHILS # (AUTO) 0.1 K/uL (0.0-0.7); EOSINOPHILS % (AUTO) 1.9 % (0.0-7.0); HEMATOCRIT 43.1 % (36.7-47.1); HEMOGLOBIN 14.1 g/dL (12.5-16.3); LYMPHOCYTES # (AUTO) 1.6 K/uL (0.8-4.8); MEAN CORPUSCULAR HEMOGLOBIN 28.3 uug (23.8-33.4); MEAN CORPUSCULAR HGB CONC 33 g/dL (32.5-36.3); MEAN CORPUSCULAR VOLUME 86.5 fL (73.0-96.2); MONOCYTES # (AUTO) 0.3 K/uL (0.1-1.30); MONOCYTES % (AUTO) 6.4 % (0.0-11.0); NEUTROPHILS # (AUTO) 3.2 K/uL (1.8-8.9); NEUTROPHILS % (AUTO) 61.2 % (38.5-71.5); PLATELET COUNT (AUTO) 237 K/uL (152-348); RED BLOOD CELL COUNT(AUTO) 4.99 MIL/uL (4.06-5.63); RED CELL DISTRIBUTION WIDTH 14.5 % (12.1-16.2); WHITE BLOOD COUNT (AUTO) 5.2 K/uL (3.6-10.2)
[2024-04-13 11:32] LABS: CREATININE 1.2 mg/dL (0.6-1.3); MAGNESIUM 2.4 mg/dL (1.8-2.4); PHOSPHOROUS 3.2 mg/dL (2.5-4.9); POTASSIUM 3.5 mmol/L (3.5-5.1)
[2024-04-13 12:00] VITALS: BP 142/87; TEMP 97.6; O2SAT 98
[2024-04-13 12:37] VITALS: BP 158/74; TEMP 98.7; O2SAT 100
[2024-04-13 13:34] LABS: CALCIUM 9.6 mg/dL (8.5-10.1)
[2024-04-13 15:59] VITALS: BP 137/69; TEMP 97.6; O2SAT 97
[2024-04-13 19:59] VITALS: BP 114/40; TEMP 97.5; O2SAT 97
[2024-04-14] MEDS: diphenhydrAMINE 50 MG CAPSULE PO ONE (02:17)
[2024-04-14 06:10] VITALS: BP 136/72; TEMP 97.8; O2SAT 97
[2024-04-14 06:24] LABS: BASOPHILS % (AUTO) 0.7 % (0.0-2.0); EOSINOPHILS # (AUTO) 0.1 K/uL (0.0-0.7); EOSINOPHILS % (AUTO) 1.8 % (0.0-7.0); HEMATOCRIT 45.8 % (36.7-47.1); HEMOGLOBIN 14.9 g/dL (12.5-16.3); LYMPHOCYTES # (AUTO) 1.6 K/uL (0.8-4.8); MEAN CORPUSCULAR HEMOGLOBIN 28.5 uug (23.8-33.4); MEAN CORPUSCULAR HGB CONC 33 g/dL (32.5-36.3); MEAN CORPUSCULAR VOLUME 87.5 fL (73.0-96.2); MONOCYTES # (AUTO) 0.3 K/uL (0.1-1.30); MONOCYTES % (AUTO) 6.6 % (0.0-11.0); NEUTROPHILS # (AUTO) 3.2 K/uL (1.8-8.9); NEUTROPHILS % (AUTO) 60.9 % (38.5-71.5); PLATELET COUNT (AUTO) 213 K/uL (152-348); RED BLOOD CELL COUNT(AUTO) 5.23 MIL/uL (4.06-5.63); RED CELL DISTRIBUTION WIDTH 14.3 % (12.1-16.2); WHITE BLOOD COUNT (AUTO) 5.3 K/uL (3.6-10.2)
[2024-04-14 06:37] LABS: CALCIUM 9.4 mg/dL (8.5-10.1); CREATININE 1.2 mg/dL (0.6-1.3); PHOSPHOROUS 2.9 mg/dL (2.5-4.9); POTASSIUM 3.7 mmol/L (3.5-5.1)
[2024-04-14 06:42] LABS: DIFFERENTIAL COMMENT 1
[2024-04-14 08:00] VITALS: BP 149/77; TEMP 97.6; O2SAT 95
[2024-04-14 12:07] VITALS: BP 132/57; TEMP 97.5; O2SAT 100
[2024-04-14] MEDS: FLUOCINONIDE 0.05% CREAM 30 GM TUBE TP SCH (13:11)
[2024-04-14 16:00] VITALS: BP 137/62; TEMP 98.3; O2SAT 95
[2024-04-14] MEDS: MUPIROCIN 2% OINT 22 GM TUBE TP SCH (16:58)
[2024-04-14] MEDS: diphenhydrAMINE 25 MG CAP PO PRN (18:35)
[2024-04-14 20:00] VITALS: BP 121/54; TEMP 98.3; O2SAT 94
[2024-04-15] VITALS: BP 131/68; TEMP 98; O2SAT 97
[2024-04-15 12:02] VITALS: BP 132/56; TEMP 98.7; O2SAT 93
[2024-04-15 15:19] VITALS: BP 117/55; TEMP 97.6; O2SAT 97
[2024-04-15 20:00] VITALS: BP 132/52; TEMP 97.3; O2SAT 100
[2024-04-16 00:15] VITALS: BP 139/73; TEMP 98.5; O2SAT 98
[2024-04-16 06:00] VITALS: BP 132/64; TEMP 98.5; O2SAT 97
[2024-04-16 07:35] VITALS: BP 115/64; TEMP 97.7; O2SAT 95
[2024-04-16 13:26] VITALS: BP 100/58; TEMP 97.8; O2SAT 96
[2024-04-16 16:25] VITALS: BP 127/66; TEMP 97.9; O2SAT 93
[2024-04-16] MEDS: HYDROCORTISONE 1% CREAM 30 GM TUBE TP SCH (17:40)
[2024-04-16 20:00] VITALS: BP 136/67; TEMP 97.3; O2SAT 93
[2024-04-17 06:00] VITALS: BP 139/63; TEMP 98.5; O2SAT 98
[2024-04-17 13:57] LABS: BASOPHILS % (AUTO) 0.4 % (0.0-2.0); EOSINOPHILS # (AUTO) 0.1 K/uL (0.0-0.7); EOSINOPHILS % (AUTO) 1.9 % (0.0-7.0); HEMATOCRIT 42.8 % (36.7-47.1); HEMOGLOBIN 13.6 g/dL (12.5-16.3); LYMPHOCYTES # (AUTO) 0.9 K/uL (0.8-4.8); LYMPHOCYTES % (AUTO) 16.2 % (20.5-51.5); MEAN CORPUSCULAR HEMOGLOBIN 28.1 uug (23.8-33.4); MEAN CORPUSCULAR HGB CONC 32 g/dL (32.5-36.3); MEAN CORPUSCULAR VOLUME 88.1 fL (73.0-96.2); MONOCYTES # (AUTO) 0.3 K/uL (0.1-1.30); MONOCYTES % (AUTO) 4.8 % (0.0-11.0); NEUTROPHILS # (AUTO) 4.2 K/uL (1.8-8.9); NEUTROPHILS % (AUTO) 76.7 % (38.5-71.5); PLATELET COUNT (AUTO) 247 K/uL (152-348); RED BLOOD CELL COUNT(AUTO) 4.86 MIL/uL (4.06-5.63); RED CELL DISTRIBUTION WIDTH 14.7 % (12.1-16.2); WHITE BLOOD COUNT (AUTO) 5.4 K/uL (3.6-10.2)
[2024-04-17 14:10] LABS: BILIRUBIN,TOTAL 0.4 mg/dL (0.2-1.0); CALCIUM 9.2 mg/dL (8.5-10.1); CREATININE 1.2 mg/dL (0.6-1.3); MAGNESIUM 2.2 mg/dL (1.8-2.4); PHOSPHOROUS 2.3 mg/dL (2.5-4.9); TOTAL PROTEIN, SERUM 6.3 g/dL (6.4-8.2)
[2024-04-17 14:17] LABS: DIFFERENTIAL COMMENT 1
[2024-04-17 15:40] VITALS: BP 114/58; TEMP 98; O2SAT 95
[2024-04-17] MEDS: NEUTRA PHOS PACKET PO ONE (16:38)
[2024-04-17 20:10] VITALS: BP 137/65; TEMP 97.7; O2SAT 98
[2024-04-18 07:02] LABS: CREATININE 1.4 mg/dL (0.6-1.3); POTASSIUM 3.9 mmol/L (3.5-5.1)
[2024-04-18 11:58] VITALS: BP 132/69; TEMP 97.8; O2SAT 99
[2024-04-18 16:11] VITALS: BP 128/77; TEMP 98; O2SAT 98
[2024-04-18 20:00] VITALS: BP 133/67; TEMP 98.4; O2SAT 99
[2024-04-19 04:00] VITALS: BP 120/73; TEMP 98.2; O2SAT 99
== END 2024-04-19 10:15 | disposition home health service (06) | DRG 65 ==
LOC: ER 15:00 → TELE3 21:10 → MEDSURG3 04-16 13:05
PROVIDERS: ADMIT Nurse Practitioner Family; ATTEND Nurse Practitioner Family
PROC: 05HB33Z Insertion of Infusion Device into Right Basilic Vein, Percutaneous Approach (ICD-10-PCS; principal; 2024-04-12)
DX: I63.81 Other cerebral infarction due to occlusion or stenosis of small artery (principal); E44.1 Mild protein-calorie malnutrition; G93.49 Other encephalopathy; T86.19 Other complication of kidney transplant; N17.9 Acute kidney failure, unspecified; R47.1 Dysarthria and anarthria; R29.705 NIHSS score 5; G40.909 Epilepsy, unspecified, not intractable, without status epilepticus; E11.621 Type 2 diabetes mellitus with foot ulcer; L97.511 Non-pressure chronic ulcer of other part of right foot limited to breakdown of skin; E11.42 Type 2 diabetes mellitus with diabetic polyneuropathy; R62.7 Adult failure to thrive; E86.0 Dehydration; E88.09 Other disorders of plasma-protein metabolism, not elsewhere classified; E78.5 Hyperlipidemia, unspecified; N40.0 Benign prostatic hyperplasia without lower urinary tract symptoms; Z91.148 Patient's other noncompliance with medication regimen for other reason; R29.6 Repeated falls; Z79.82 Long term (current) use of aspirin; Z79.899 Other long term (current) drug therapy; F32.A Depression, unspecified; Z86.16 Personal history of COVID-19; Z86.73 Personal history of transient ischemic attack (TIA), and cerebral infarction without residual deficits; Z87.891 Personal history of nicotine dependence; Z87.01 Personal history of pneumonia (recurrent); Z91.199 Patient's noncompliance with other medical treatment and regimen due to unspecified reason; Z91.048 Other nonmedicinal substance allergy status; Z79.621 Long term (current) use of calcineurin inhibitor; Z79.02 Long term (current) use of antithrombotics/antiplatelets; F14.10 Cocaine abuse, uncomplicated; K21.9 Gastro-esophageal reflux disease without esophagitis
CPT/HCPCS: 36415; 70450; 70551; 71045; 83605; 83735; 84100; 84443; 84484; 85025; 85730; 87040; 93005; 93307; 93880; A4606; A4663; A6209; G0378; G0480; J0133; J0696; J1100; J1650; J1815; J3370; J7040; J7120; J7507; J7512; Q0163